=== PATIENT | female | born 1970 | race Caucasian/White ===

== ENCOUNTER 2016-08-25 17:33 | Emergency (ER) | payer MEDICAID ==
[~2016-08-25] VITALS: Ht 177.8 cm; Wt 99.8 kg
[~2016-08-25 17:33] MED LIST: IBUP100T36 PO
[2016-08-25] MEDS ORDERED: HYDROCODONE/APAP 5/325MG 1 EACH TABLET ONE (20:55)
[2016-08-25] MEDS ORDERED: HYDROCODONE/APAP 5/325MG 1 EACH TABLET PO ONE (21:00)
[2016-08-25 21:59] VITALS: BP 140/70
== END 2016-08-25 22:00 | disposition home or self-care (01) ==
LOC: ER 17:35
DX: M54.5 Low back pain (principal); G89.29 Other chronic pain; F17.200 Nicotine dependence, unspecified, uncomplicated; I10 Essential (primary) hypertension; Z88.5 Allergy status to narcotic agent; Z88.0 Allergy status to penicillin; Z88.1 Allergy status to other antibiotic agents
CPT/HCPCS: 72110; 99284; A4606; Z7610

== ENCOUNTER 2016-09-02 08:10 | Emergency (ER) | payer MEDICAID ==
[~2016-09-02] VITALS: Ht 175.3 cm; Wt 115.7 kg
[2016-09-02] MEDS ORDERED: ONDANSETRON HCL/PF 4 MG/2 ML VIAL ONE ×2 (08:29→09:47)
[2016-09-02] MEDS ORDERED: IV SET PRIMARY 1 EA INFUS.SET MC ONE (08:36)
[2016-09-02] MEDS ORDERED: IV NS 0.9% 1,000 ML ONE (08:36)
[2016-09-02 08:50] LABS: BASOPHILS % (AUTO) 0.1 % (0.0-2.0); DIFF TOTAL % 100 %; EOSINOPHILS % (AUTO) 0.1 % (0.0-6.0); HEMATOCRIT 44 % (33-45); HEMOGLOBIN 14.3 g/dL (11.5-14.8); LYMPHOCYTES # (AUTO) 0.9 /CMM (0.8-4.8); LYMPHOCYTES % (AUTO) 9.7 % (20.0-44.0); MEAN CORPUSCULAR HEMOGLOBIN 29 PG (26.0-33.0); MEAN CORPUSCULAR HGB CONC 33 g/dl (31.0-36.0); MEAN CORPUSCULAR VOLUME 89 fL (82-100); MONOCYTES # (AUTO) 0.3 /CMM (0.1-1.30); MONOCYTES % (AUTO) 2.8 % (2.0-12.0); NEUTROPHILS # (AUTO) 8.3 /CMM (1.8-8.9); NEUTROPHILS % (AUTO) 87.3 % (43.0-81.0); PLATELET COUNT (AUTO) 281 /CMM (150-450); RED BLOOD CELL COUNT(AUTO) 4.93 MIL/uL (4.0-5.2); WHITE BLOOD COUNT (AUTO) 9.5 K/uL (4.3-11.0)
[2016-09-02 09:00] LABS: ANION GAP 11 (5-14); CALCIUM, SERUM 8.8 mg/dL (8.5-10.1); CARBON DIOXIDE 27 mmol/L (21-32); CHLORIDE 101 mmol/L (98-107); CREATININE 0.9 mg/dL (0.6-1.3); GFR 67 mL/min (>60); GLUCOSE 143 mg/dL (74-106); POTASSIUM 4.4 mmol/L (3.5-5.1); SODIUM SERUM 135 mmol/L (136-145); UREA NITROGEN, BLOOD 7 mg/dL (7-18)
[2016-09-02] MEDS ORDERED: ONDANSETRON HCL/PF 4 MG/2 ML VIAL IVP ONE ×2 (09:00→10:00)
[2016-09-02] MEDS ORDERED: KETOROLAC TROMETHAMINE INJ 30 MG/ML VIAL IV ONE (09:00)
[2016-09-02] MEDS ORDERED: IV NS 0.9% 1,000 ML BAG IV ONE (09:00)
[2016-09-02 09:05] LABS: ALANINE AMINOTRANSFERASE 30 U/L (12-78); ALBUMIN 3.5 g/dL (3.4-5.0); ASPARTATE AMINOTRANSFERASE 11 U/L (15-37); BILIRUBIN,DIRECT 0.1 mg/dL (0.0-0.2); BILIRUBIN,TOTAL 0.5 mg/dL (0.2-1.0); INDIRECT BILIRUBIN 0.4 mg/dL (0.0-1.1); TOTAL PROTEIN, SERUM 7.6 g/dL (6.4-8.2)
[2016-09-02 09:07] LABS: TROPONIN I < 0.017 ng/mL (0.00-0.056)
[2016-09-02 09:09] LABS: INR 1.1 (0.87-1.13); PROTHROMBIN TIME 11.9 SECS (9.5-12.7)
[2016-09-02] MEDS ORDERED: KETOROLAC TROMETHAMINE 15 MG/ML VIAL ONE (09:12)
[2016-09-02] MEDS ORDERED: MORPHINE SULFATE INJ 2 MG/ML DISP.SYRIN ONE (09:47)
[2016-09-02 09:59] VITALS: BP 138/89
[2016-09-02] MEDS ORDERED: MORPHINE SULFATE INJ 2 MG/ML DISP.SYRIN IV ONE (10:00)
== END 2016-09-02 10:01 | disposition home or self-care (01) ==
LOC: ER 08:12
DX: R07.9 Chest pain, unspecified (principal); I10 Essential (primary) hypertension; Z88.0 Allergy status to penicillin; Z88.6 Allergy status to analgesic agent; Z88.1 Allergy status to other antibiotic agents; F17.200 Nicotine dependence, unspecified, uncomplicated
CPT/HCPCS: 36415; 71010; 80048; 80076; 84484; 84703; 85025; 85730; 93005; 96361; 96374; 96375; 96376; 99285; A4606; J1885; J2270; J2405 ×2; J7030; Z7610

== ENCOUNTER 2017-07-28 17:03 | Inpatient (IN) | payer MEDICAID ==
[~2017-07-28] VITALS: Ht 175.3 cm; Wt 112.3 kg
--- NOTE | 2017-07-28 17:10 | NUR ---
BIB SELF, C/O NAUSEA, VOMITING, ABDOMINAL PAIN, FLU SYMPTOMS, NAD NOTED, VSS, RESP EVEN AND UNLABORED. WAITING FOR MD SPANGLER.
[2017-07-28] MEDS ORDERED: KETOROLAC TROMETHAMINE INJ 30 MG/ML VIAL IV ONE (17:30)
[2017-07-28] MEDS ORDERED: IV NS 0.9% 1,000 ML BAG IV ONE (17:30)
[2017-07-28] MEDS ORDERED: ONDANSETRON HCL/PF 4 MG/2 ML VIAL IVP ONE (17:30)
[2017-07-28] MEDS ORDERED: ONDANSETRON HCL/PF 4 MG/2 ML VIAL ONE ×2 (17:33→19:17)
[2017-07-28] MEDS ORDERED: KETOROLAC TROMETHAMINE INJ 30 MG/ML VIAL ONE (17:33)
[2017-07-28 17:50] LABS: BASOPHILS # (AUTO) 0.2 /CMM (0.0-0.2); BASOPHILS % (AUTO) 1.9 % (0.0-2.0); EOSINOPHILS % (AUTO) 0.5 % (0.0-6.0); HEMATOCRIT 45 % (33-45); HEMOGLOBIN 15.6 g/dL (11.5-14.8); LYMPHOCYTES # (AUTO) 1.3 /CMM (0.8-4.8); LYMPHOCYTES % (AUTO) 15.7 % (20.0-44.0); MEAN CORPUSCULAR HEMOGLOBIN 30 PG (26.0-33.0); MEAN CORPUSCULAR HGB CONC 35 g/dl (31.0-36.0); MEAN CORPUSCULAR VOLUME 88 fL (82-100); MONOCYTES # (AUTO) 0.4 /CMM (0.1-1.30); MONOCYTES % (AUTO) 4.9 % (2.0-12.0); NEUTROPHILS # (AUTO) 6.3 /CMM (1.8-8.9); PLATELET COUNT (AUTO) 219 /CMM (150-450); RDW COEFFICIENT OF VARIATION 12.5 (11.5-15.0); RED BLOOD CELL COUNT(AUTO) 5.14 MIL/uL (4.0-5.2); WHITE BLOOD COUNT (AUTO) 8.2 K/uL (4.3-11.0)
[2017-07-28] MEDS ORDERED: MORPHINE SULFATE INJ 4 MG/ML DISP.SYRIN ONE ×2 (17:56→19:18)
[2017-07-28] MEDS ORDERED: MORPHINE SULFATE INJ 2 MG/ML DISP.SYRIN IV ONE ×2 (18:00→19:00)
[2017-07-28 18:08] LABS: ALBUMIN 3.8 g/dL (3.4-5.0); BILIRUBIN,DIRECT 0.1 mg/dL (0.0-0.2); BILIRUBIN,TOTAL 0.6 mg/dL (0.2-1.0); CALCIUM, SERUM 9.5 mg/dL (8.5-10.1); CREATININE 0.7 mg/dL (0.6-1.3); POTASSIUM 3.6 mmol/L (3.5-5.1); TOTAL PROTEIN, SERUM 8.4 g/dL (6.4-8.2)
[2017-07-28 18:25] LABS: INR 1.03 (0.87-1.13); PROTHROMBIN TIME 10.7 SECS (9.5-12.7)
[2017-07-28] MEDS ORDERED: IOHEXOL-300 100 ML VIAL IV ONE (19:02)
[2017-07-28] MEDS ORDERED: IV NS 0.9% 250 ML IV ONE ×2 (19:02→23:14)
--- NOTE | 2017-07-28 19:27 | NUR ---
URINE SENT TO LAB
--- NOTE | 2017-07-28 19:27 | NUR ---
PT TO CTSCAN
[2017-07-28] MEDS ORDERED: ONDANSETRON HCL/PF 4 MG/2 ML VIAL IV ONE (19:30)
[2017-07-28 19:32] LABS: APPEARANCE,URINE Clear (CLEAR); BILIRUBIN,URINE Negative (NEGATIVE); BLOOD, URINE Trace-intact Ery/uL (NEGATIVE); COLOR,URINE Yellow (YELLOW); KETONES,URINE Negative (NEGATIVE); LEUKOCYTE ESTERASE ,URINE Negative (NEGATIVE); NITRITE, URINE Negative (NEGATIVE); PH,URINE 8.5 (5.0-8.0); PROTEIN,URINE Negative (NEGATIVE); UGLUCOSE Negative (NEGATIVE); UROBILINOGEN,URINE 0.2 EU/dL (0.2)
[2017-07-28 20:01] LABS: BACTERIA,URINE Rare /HPF (None Seen); RBC,URINE 0-2 /HPF (0-2); SQUAMOUS EPITHELIAL CELL,UR Few /HPF (None Seen); URINE AMORPHOUS PHOSPHATES Few /HPF (None Seen); WBC,URINE 0-2 /HPF (0-3)
[2017-07-28] MEDS ORDERED: HYDROMORPHONE 1 MG/1 ML DISP.SYRIN IV ONE (20:30)
[2017-07-28] MEDS ORDERED: HYDROMORPHONE 1 MG/1 ML DISP.SYRIN ONE (20:53)
--- NOTE | 2017-07-28 21:46 | NUR ---
PAGED MENTAL HEALTH COORDINATOR PANEL DR DANICA ARREOLA
[2017-07-28] MEDS ORDERED: IV D5/0.45 NACL 1,000 ML IV PRN (22:27)
[2017-07-28] MEDS ORDERED: Z GUARD REMEDY 2 OZ OINT TP PRN (22:30)
[2017-07-28] MEDS ORDERED: MORPHINE SULFATE INJ 2 MG/ML DISP.SYRIN IV PRN (22:30)
[2017-07-28] MEDS ORDERED: MAGNESIUM HYDROXIDE 30 ML UDC PO PRN (22:30)
[2017-07-28] MEDS ORDERED: MAG HYDROX/AL HYDROX/SIMETH 30 ML UDC PO PRN (22:30)
[2017-07-28] MEDS ORDERED: ACETAMINOPHEN 325 MG TABLET PO PRN (22:30)
[2017-07-28] MEDS ORDERED: HYDROCODONE/APAP 5/325MG 1 EACH TABLET PO PRN (22:30)
[2017-07-28] MEDS ORDERED: ZOLPIDEM TARTRATE 5 MG TABLET PO PRN (22:30)
--- NOTE | 2017-07-28 22:32 | NUR ---
PATIENT 317-2, DX CHEST PAIN ADMITTED BY DR DANICA ARREOLA
--- NOTE | 2017-07-28 22:53 | NUR ---
REPORT GIVEN TO SUSY.
[2017-07-28] MEDS ORDERED: IOHEXOL-350 100 ML VIAL IV ONE (23:14)
[2017-07-28] MEDS ORDERED: CT SWABBABLE VALVE TRANS SET 1 EA INFUS.SET MC ONE (23:14)
[2017-07-29 00:10] VITALS: BP 155/99
--- NOTE | 2017-07-29 00:10 | NUR ---
RN NOTES ADMITTED A 47 YEARS OLD FEMALE PT FROM ER VIA [facility] WITH PRIMARY DIAGNOSIS OF CHEST PAIN. PT ALERT AND ORIENTED X4, VERBALLY RESPONSIVE. VITAL SIGNS STABLE. PT STILL COMPLAINING OF PAIN ON MEDIAL CHEST RADIATING TO LEFT SIDE OF THE BODY TO BACK. PT VERBALIZING FEELS NAUSEATED. SKIN AND BODY ASSESSMENT DONE WITH PICTURES TAKEN AND FILE IN THE CHART. ALL ORDERS NOTED AND CARRIED OUT. PLAN OF CARE DISCUSSED WITH THE PT. FALL PRECAUTION OBSERVED. WILL CONTINUE TO MONITOR PT.
--- NOTE | 2017-07-29 00:10 | NUR ---
ASSUMED ADMISSION CARE OF PT AT THIS TIME. REPORT ALREADY GIVEN BY PRIMARY NURSE TO BE TRANSPORTED TO TELE FLOOR VIA [facility].
[2017-07-29 00:30] VITALS: BP 155/99
[2017-07-29] MEDS ORDERED: ONDANSETRON HCL/PF 4 MG/2 ML VIAL ONE (00:45)
[2017-07-29] MEDS ORDERED: MORPHINE SULFATE INJ 4 MG/ML DISP.SYRIN ONE ×2 (00:49→05:14)
[2017-07-29] MEDS: MORPHINE SULFATE INJ 4 MG/ML DISP.SYRIN IV PRN ×3 (00:57→09:25)
[2017-07-29] MEDS: ONDANSETRON HCL/PF 4 MG/2 ML VIAL IVP PRN ×3 (00:58→09:26)
[2017-07-29 04:00] VITALS: BP 139/85
[2017-07-29] MEDS ORDERED: PANTOPRAZOLE 40 MG TABLET.DR PO SCH (07:30)
[2017-07-29 07:35] LABS: BASOPHILS % (AUTO) 0.5 % (0.0-2.0); EOSINOPHILS # (AUTO) 0.1 /CMM (0.0-0.7); EOSINOPHILS % (AUTO) 0.8 % (0.0-6.0); HEMATOCRIT 44 % (33-45); HEMOGLOBIN 14.8 g/dL (11.5-14.8); LYMPHOCYTES % (AUTO) 24.2 % (20.0-44.0); MEAN CORPUSCULAR HEMOGLOBIN 30 PG (26.0-33.0); MEAN CORPUSCULAR HGB CONC 34 g/dl (31.0-36.0); MEAN CORPUSCULAR VOLUME 89 fL (82-100); MONOCYTES # (AUTO) 0.5 /CMM (0.1-1.30); MONOCYTES % (AUTO) 6.6 % (2.0-12.0); NEUTROPHILS # (AUTO) 5.6 /CMM (1.8-8.9); NEUTROPHILS % (AUTO) 67.9 % (43.0-81.0); PLATELET COUNT (AUTO) 213 /CMM (150-450); RDW COEFFICIENT OF VARIATION 12.6 (11.5-15.0); WHITE BLOOD COUNT (AUTO) 8.2 K/uL (4.3-11.0)
--- NOTE | 2017-07-29 07:35 | NUR ---
RN NOTES PT AWAKE, HOB ELEVATED, ON ROOM AIR WITH GOOD SATURATION. VITAL SIGNS STABLE, AFEBRILE. CURRENT DIET TOLERATED WELL, NO EPISODE OF VOMITING NOTED. TELE MONITOR READS SINUS RHYTHM AT 74. KEPT PAIN AT TOLERABLE LEVEL. ALL NEEDS ATTENDED. WILL CONTINUE TO MONITOR PT.
--- NOTE | 2017-07-29 07:52 | NUR ---
RN OPENING NOTES PT RECEIVED A&0X3 AWAKE AND RESTING IN BED. PT TOLERATING ROOM AIR AND DENIES SOB, NO S/S OF RESP DISTRESS OR DIFFICULTY. PT REPORTING 10/10 PAIN TO UPPER BACK AND AWARE OF WHEN NEXT PAIN MEDS ARE DUE, NO OBVIOUS S/S OF DISTRESS OR DISCOMFORT. PT REPORTING SOME NAUSEA AND REQUESTING PRN- WILL ADMIN. PT WITH IVCX2. IVC AT LAC G#20 INTACT AND OPERATIONAL AND IVC AT L HAND INTACT AND SL. BED IN LOWEST, LOCKED POSITION WITH HANDRAILSX2 AND CALL DEWITT WITHIN REACH. PT BRIEFED ON TODAY'S POC AND IS WITHOUT COMPLAINT AT THIS TIME.
[2017-07-29] MEDS ORDERED: BUPR1FIL3 SL (07:55)
[2017-07-29] MEDS ORDERED: ATEN100T PO (07:55)
[2017-07-29 08:00] VITALS: BP 154/90
[2017-07-29 08:04] LABS: ALBUMIN 3.5 g/dL (3.4-5.0); BILIRUBIN,DIRECT 0.1 mg/dL (0.0-0.2); BILIRUBIN,TOTAL 0.6 mg/dL (0.2-1.0); CALCIUM, SERUM 8.9 mg/dL (8.5-10.1); CREATININE 0.8 mg/dL (0.6-1.3); INR 1.07 (0.87-1.13); MAGNESIUM 1.9 mg/dL (1.8-2.4); PHOSPHORUS 4.8 mg/dL (2.5-4.9); POTASSIUM 3.7 mmol/L (3.5-5.1); PROTHROMBIN TIME 11.1 SECS (9.5-12.7); TOTAL PROTEIN, SERUM 7.6 g/dL (6.4-8.2)
[2017-07-29 08:08] LABS: CREATINE KINASE MB 0.4 ng/mL (0-3.6); THYROID STIMULATING HORMONE 0.64 uIU/mL (0.358-3.74)
[2017-07-29] MEDS ORDERED: SUMATRIPTAN SUCCINATE 6 MG/0.5 ML VIAL SQ ONE (09:30)
[2017-07-29 09:50] LABS: THYROID STIMULATING HORMONE 0.583 uIU/mL (0.358-3.74)
[2017-07-29] MEDS: HYDROMORPHONE 1 MG/1 ML DISP.SYRIN IV PRN ×3 (10:48→19:41)
--- NOTE | 2017-07-29 10:49 | NUR ---
RN NOTES. PT REPORTING UNCONTROLLED PAIN FROM MORPHINE AND SPECIFICALLY REQUESTING DILAUDID, PT REPORTS HAVING IT IN THE PAST AND DENIES PREVIOUS ADVERSE REACTIONS R/T CODEINE ALLERGY CROSS REACTION. APPROVED BY PHARMACY AND MD VILLA. NOW DILAUDID IS AVAILABLE PT REFUSING THE REQUESTING MIGRAINE PRN. WILL CONTINUE TO MONITOR.
[2017-07-29] MEDS: SUMATRIPTAN SUCCINATE 25 MG TABLET PO ONE ×2 (11:00→16:50)
--- NOTE | 2017-07-29 11:46 | NUR ---
WOUND CARE CONSULT; PT REFUSED FULL SKIN ASSESSMENT BUT ALLOWED ASSESSMENT OF ARMS AND LOWER LEGS. MULTIPLE SCARS NOTED WITH OPEN BLISTER AREA TO RT POSTERIOR HEEL, PRESENT ON ADMISSION. PT STATES THIS WAS FROM HER SHOE. PT INDEPENDENT WITH BED MOBILITY AND CONTINENT. CURRENT ANALIA SCORE IS 20. RECOMMENDATIONS MADE FOR SKIN PROTECTION AND DISCUSSED WITH NURSING STAFF. WILL SEE PRN. SCHWAB IN AGREEMENT WITH PLAN OF CARE. Addendum: 07/29/17 at 1148 by MISA LANDRY WNDNU Amended: Links added.
[2017-07-29 13:20] LABS: RETICULOCYTE COUNT 1.3 % (0.6-2.5)
[2017-07-29 16:00] VITALS: BP 149/80
--- NOTE | 2017-07-29 16:51 | NUR ---
RN NOTES. PER MD VILLA IMITREX 25MG ADMIN.
[2017-07-29] MEDS ORDERED: HYDR-552 PO (17:03)
[2017-07-29] MEDS ORDERED: ZOLP5TAB2 PO (17:04)
--- NOTE | 2017-07-29 20:00 | NUR ---
RN CLOSING NOTES PT A&0X3. PT TOLERATING ROOM AIR AND DENIES SOB, NO S/S OF RESP DISTRESS OR DIFFICULTY. PT REPORTING ADEQUATE PAIN MANAGEMENT AT THIS TIME. PT WITHOUT NAUSEA AT THIS TIME. PT WITH IVC AT LAC G#20 INTACT AND OPERATIONAL. BED IN LOWEST, LOCKED POSITION WITH HANDRAILSX2 AND CALL DEWITT WITHIN REACH. PT IS CLEARED FOR D/C PER MD VILLA AND EXIT CARE STARTED. PT WITHOUT CONCERN OR COMPLAINT AT THIS TIME, WILL ENDORSE TO NIGHT NURSE.
--- NOTE | 2017-07-29 20:49 | NUR ---
MS RN NOTES PT PREPARED FOR D/C PER . NO SOB. RESPIRATION EVEN AND UNLABORED. V/S STABLE. PT DENIES PAIN AT THIS TIME. REMOVED IV. PICTURES TAKEN. AHSAN WAITING FOR THE PT. PT WITH ALL BELONGINGS AND DOCUMENT SIGNED. PT IS VERBALIZING UNDERSTANDING ABOUT D/C INSTRUCTIONS. PT STABLE UPON DISCHARGE.
[2017-07-30] MEDS ORDERED: REGADENOSON 0.4 MG/5 ML DISP.SYRIN IVP ONE (08:00)
== END 2017-07-29 20:30 | disposition home or self-care (01) | DRG 54 ==
LOC: ER 17:04 → TELE 22:55 → MED 07-29 09:10
PROVIDERS: ADMIT Internal Medicine; ATTEND Internal Medicine
DX: G43.909 Migraine, unspecified, not intractable, without status migrainosus (principal); I10 Essential (primary) hypertension; R07.89 Other chest pain; K21.9 Gastro-esophageal reflux disease without esophagitis; Z98.1 Arthrodesis status; Z98.84 Bariatric surgery status; B34.9 Viral infection, unspecified
CPT/HCPCS: 36415; 70450-TC; 71045-TC; 80048-TC; 80053-TC; 80061-TC; 80076-TC; 81000-TC; 82150-TC; 82306; 82553-TC; 82746; 83540-TC; 83690-TC; 83735-TC; 84100-TC; 84439-TC; 84443-TC; 84484-TC; 85025-TC; 85045-TC; 85378-TC; 85730-TC; 87040-TC; 87081-TC; 93307-TC; 93970-TC; J1170; J1885; J2270; J2405; J3030; J3490; J7030; J7050; Q9967; Z7610

== ENCOUNTER 2018-01-15 09:15 | Emergency (ER) | payer MEDICAID ==
[~2018-01-15] VITALS: Ht 177.8 cm; Wt 102.1 kg
[~2018-01-15 09:15] MED LIST changes: +ATEN100T PO; +BUPR1FIL3 SL; +HYDR-552 PO; -IBUP100T36 PO; +ZOLP5TAB2 PO
--- NOTE | 2018-01-15 09:15 | NUR ---
PATIENT IS NOT IN WAITING ROOM. UNABLE TO TRIAGE PAIENT. WILL TRY AGAIN IN 10 MIN.
--- NOTE | 2018-01-15 09:25 | NUR ---
PATIENT IS STILL NOT IN WAITING ROOM. UNABLE TO TRIAGE PAIENT. WILL TRY AGAIN IN 10 MIN.
--- NOTE | 2018-01-15 09:35 | NUR ---
NAUSEA, VOMITING, ABDOMINAL PAIN SINCE MIDNIGHT. NAD NOTED. PT AAO X4, AMB WITH STEADY GAIT. RR EVEN AND UNLABORED. VSS. DR GARCÍA AT BEDSIDE FOR EVAL.
[2018-01-15] MEDS ORDERED: ONDANSETRON HCL/PF 4 MG/2 ML VIAL ONE (09:37)
--- NOTE | 2018-01-15 09:46 | NUR ---
MEDS GIVEN ORDERED.
--- NOTE | 2018-01-15 09:49 | NUR ---
ULTRASOUND AT BEDSIDE
[2018-01-15 09:51] LABS: BASOPHILS # (AUTO) 0.1 /CMM (0.0-0.2); BASOPHILS % (AUTO) 1.6 % (0.0-2.0); EOSINOPHILS % (AUTO) 2.4 % (0.0-6.0); HEMATOCRIT 42 % (33-45); HEMOGLOBIN 14.3 g/dL (11.5-14.8); LYMPHOCYTES # (AUTO) 1.7 /CMM (0.8-4.8); LYMPHOCYTES % (AUTO) 23.5 % (20.0-44.0); MEAN CORPUSCULAR HEMOGLOBIN 30 PG (26.0-33.0); MEAN CORPUSCULAR HGB CONC 34 g/dl (31.0-36.0); MEAN CORPUSCULAR VOLUME 88 fL (82-100); MONOCYTES # (AUTO) 0.5 /CMM (0.1-1.30); MONOCYTES % (AUTO) 6.4 % (2.0-12.0); NEUTROPHILS # (AUTO) 4.9 /CMM (1.8-8.9); NEUTROPHILS % (AUTO) 66.1 % (43.0-81.0); PLATELET COUNT (AUTO) 273 /CMM (150-450); RDW COEFFICIENT OF VARIATION 12.7 (11.5-15.0); WHITE BLOOD COUNT (AUTO) 7.4 K/uL (4.3-11.0)
[2018-01-15 10:00] LABS: CALCIUM, SERUM 9.1 mg/dL (8.5-10.1); CREATININE 0.8 mg/dL (0.6-1.3)
[2018-01-15] MEDS ORDERED: ONDANSETRON HCL/PF 4 MG/2 ML VIAL IVP ONE (10:00)
[2018-01-15] MEDS ORDERED: IV NS 0.9% 500 ML BAG IV ONE (10:00)
[2018-01-15 10:05] LABS: ALBUMIN 3.9 g/dL (3.4-5.0); BILIRUBIN,DIRECT 0.2 mg/dL (0.0-0.2); TOTAL PROTEIN, SERUM 8.1 g/dL (6.4-8.2)
[2018-01-15] MEDS ORDERED: FAMOTIDINE (20 MG) 20 MG TABLET PO ONE (10:30)
[2018-01-15] MEDS ORDERED: FAMOTIDINE (20 MG) 20 MG TABLET ONE (10:31)
[2018-01-15 10:35] VITALS: BP 160/84
== END 2018-01-15 10:36 | disposition home or self-care (01) ==
LOC: ER 09:20
DX: R10.13 Epigastric pain (principal); I10 Essential (primary) hypertension; F17.200 Nicotine dependence, unspecified, uncomplicated; Z98.890 Other specified postprocedural states; Z88.0 Allergy status to penicillin; Z88.1 Allergy status to other antibiotic agents; Z88.6 Allergy status to analgesic agent
CPT/HCPCS: 36415; 76705; 80048; 80076; 83690; 85025; 96374; 99285; A4606; J2405; J7040; Z7610

== ENCOUNTER 2020-01-11 18:02 | Emergency (ER) | payer MEDICAID ==
[~2020-01-11] VITALS: Ht 172.7 cm; Wt 122.5 kg
[~2020-01-11 18:02] MED LIST changes: +HYDR-4384 PO; -HYDR-552 PO
[2020-01-11] MEDS ORDERED: PANTOPRAZOLE 40 MG VIAL ONE (19:16)
[2020-01-11] MEDS ORDERED: MAG HYDROX/AL HYDROX/SIMETH 30 ML UDC ONE (19:16)
[2020-01-11] MEDS ORDERED: LIDOCAINE VISCOUS 2% UD 15 ML UDC ONE (19:16)
[2020-01-11] MEDS ORDERED: MORPHINE SULFATE INJ 4 MG/ML DISP.SYRIN ONE (19:17)
[2020-01-11] MEDS ORDERED: ONDANSETRON HCL/PF 4 MG/2 ML VIAL ONE (19:17)
[2020-01-11 19:24] LABS: BASOPHILS % (AUTO) 0.5 % (0.0-2.0); EOSINOPHILS % (AUTO) 1.1 % (0.0-6.0); HEMATOCRIT 43 % (33-45); HEMOGLOBIN 14.3 g/dL (11.5-14.8); LYMPHOCYTES # (AUTO) 1.4 /CMM (0.8-4.8); LYMPHOCYTES % (AUTO) 20.4 % (20.0-44.0); MEAN CORPUSCULAR HGB CONC 33 g/dl (31.0-36.0); MEAN CORPUSCULAR VOLUME 89 fL (82-100); MONOCYTES # (AUTO) 0.6 /CMM (0.1-1.30); NEUTROPHILS # (AUTO) 4.9 /CMM (1.8-8.9); PLATELET COUNT (AUTO) 238 /CMM (150-450); RED BLOOD CELL COUNT(AUTO) 4.86 MIL/uL (4.0-5.2); WHITE BLOOD COUNT (AUTO) 6.9 K/uL (4.3-11.0)
[2020-01-11 19:30] LABS: CALCIUM, SERUM 9.1 mg/dL (8.5-10.1); CREATININE 0.9 mg/dL (0.6-1.3); POTASSIUM 4.1 mmol/L (3.5-5.1)
[2020-01-11] MEDS ORDERED: MORPHINE SULFATE INJ 10 MG/ML DISP.SYRIN IV ONE (19:30)
[2020-01-11] MEDS ORDERED: LIDOCAINE VISCOUS 2% UD 15 ML UDC MM ONE (19:30)
[2020-01-11] MEDS ORDERED: ONDANSETRON HCL/PF 4 MG/2 ML VIAL IV ONE (19:30)
[2020-01-11] MEDS ORDERED: MAG HYDROX/AL HYDROX/SIMETH 30 ML UDC PO ONE (19:30)
[2020-01-11] MEDS ORDERED: PANTOPRAZOLE 40 MG VIAL IV ONE (19:30)
[2020-01-11] MEDS ORDERED: IV NS 0.9% 1,000 ML BAG IV ONE (19:30)
--- NOTE | 2020-01-11 19:30 | NUR ---
ENDORSED TO MARVA ADAMSON FOR BEATRICE.
--- NOTE | 2020-01-11 19:30 | NUR ---
PATIENT CAME IN TO THE ER C/O CHEST DISCOMFORT, SOB X 3 DAYS, R HAND PAIN W/ NOTED WOUND X 3 DAYS. ON ROOM AIR, BREATHING EVENLY AND UNLABORED. CONNECTED TO THE MONITOR AND PULSE OX. KEPT COMFORTABLE, WILL CONTINUE TO MONITOR ACCORDINGLY.
[2020-01-11 19:52] LABS: B-TYPE NATRIURETIC PEPTIDE 29 PG/ML (0-125); BILIRUBIN,DIRECT 0.1 mg/dL (0.0-0.2); BILIRUBIN,TOTAL 0.4 mg/dL (0.2-1.0); TOTAL PROTEIN, SERUM 8.2 g/dL (6.4-8.2)
--- NOTE | 2020-01-11 20:46 | NUR ---
PT'S FATHER, ZHANNA
[2020-01-11 20:51] LABS: APPEARANCE,URINE Clear (CLEAR); BILIRUBIN,URINE Negative (NEGATIVE); BLOOD, URINE Negative Ery/uL (NEGATIVE); COLOR,URINE Yellow (YELLOW); KETONES,URINE Negative (NEGATIVE); LEUKOCYTE ESTERASE ,URINE Negative (NEGATIVE); NITRITE, URINE Negative (NEGATIVE); PROTEIN,URINE Negative (NEGATIVE); UGLUCOSE Negative (NEGATIVE); UROBILINOGEN,URINE 0.2 EU/dL (0.2)
[2020-01-11] MEDS ORDERED: METOCLOPRAMIDE HCL 10 MG/2 ML VIAL IV ONE (21:30)
[2020-01-11] MEDS ORDERED: HYDROMORPHONE INJ 2 MG/ML DISP.SYRIN IV ONE (21:30)
[2020-01-11] MEDS ORDERED: CT SWABBABLE VALVE TRANS SET 1 EA INFUS.SET MC ONE (21:40)
[2020-01-11] MEDS ORDERED: IOHEXOL-300 100 ML VIAL IV ONE (21:40)
[2020-01-11] MEDS ORDERED: IV NS 0.9% 250 ML IV ONE (21:40)
[2020-01-11] MEDS ORDERED: METOCLOPRAMIDE HCL 10 MG/2 ML VIAL ONE (21:57)
[2020-01-11] MEDS ORDERED: HYDROMORPHONE 1 MG/1 ML DISP.SYRIN ONE (21:58)
--- NOTE | 2020-01-11 22:09 | NUR ---
BACK FROM CT
[2020-01-11 23:00] VITALS: BP 150/100
--- NOTE | 2020-01-11 23:19 | NUR ---
Patient discharged to home in stable condition. Written and verbal after care instructions given. Patient verbalizes understanding of instruction.IV removed. Catheter intact and site benign. Pressure and 4x4 applied to site. No bleeding noted.
== END 2020-01-11 23:48 | disposition home or self-care (01) ==
LOC: ER 18:06
DX: R10.13 Epigastric pain (principal); R11.0 Nausea; K59.00 Constipation, unspecified; E66.01 Morbid (severe) obesity due to excess calories; Z68.41 Body mass index [BMI] 40.0-44.9, adult; Z98.84 Bariatric surgery status; I10 Essential (primary) hypertension; Z79.82 Long term (current) use of aspirin; L98.499 Non-pressure chronic ulcer of skin of other sites with unspecified severity; R06.02 Shortness of breath; Z20.828 Contact with and (suspected) exposure to other viral communicable diseases; Z98.1 Arthrodesis status
CPT/HCPCS: 36415; 71045; 74176; 80048; 80076; 81001; 83690; 83880; 84484; 85025; 93005 ×2; 96361; 96374; 96375; 99285; C9113; C9803; J1170; J2270; J2405; J2765; J7030; U0003; 81000-TC; J7050; Q9967

== ENCOUNTER 2020-03-18 21:08 | Emergency (ER) | payer MEDICAID ==
[~2020-03-18] VITALS: Ht 177.8 cm; Wt 117.9 kg
--- NOTE | 2020-03-18 23:33 | NUR ---
PATIENT CAME TO ER BED 8 C/O GENERALIZED PAIN "I HAVE PAIN EVERYWHERE" SINCE 3x DAYS AGO. PATIENT HAS WOUNDS THAT ARE PINK AND NOT BLEEDING, NON-PURULENT ON HER RIGHT HAND AND RIGHT THIGH. PATIENT IS AAOX4. NO SOB. BREATHING EVENLY AND UNLABORED ON ROOM AIR. CONNECTED TO THE MONITOR.
[2020-03-18 23:57] LABS: BASOPHILS # (AUTO) 0.1 /CMM (0.0-0.2); BASOPHILS % (AUTO) 0.7 % (0.0-2.0); EOSINOPHILS % (AUTO) 0.4 % (0.0-6.0); HEMATOCRIT 42 % (33-45); HEMOGLOBIN 13.7 g/dL (11.5-14.8); LYMPHOCYTES # (AUTO) 1.6 /CMM (0.8-4.8); LYMPHOCYTES % (AUTO) 18.6 % (20.0-44.0); MEAN CORPUSCULAR HGB CONC 32 g/dl (31.0-36.0); MEAN CORPUSCULAR VOLUME 90 fL (82-100); MONOCYTES # (AUTO) 0.5 /CMM (0.1-1.30); MONOCYTES % (AUTO) 5.6 % (2.0-12.0); NEUTROPHILS # (AUTO) 6.4 /CMM (1.8-8.9); NEUTROPHILS % (AUTO) 74.7 % (43.0-81.0); PLATELET COUNT (AUTO) 230 /CMM (150-450); RED BLOOD CELL COUNT(AUTO) 4.69 MIL/uL (4.0-5.2); WHITE BLOOD COUNT (AUTO) 8.6 K/uL (4.3-11.0)
[2020-03-19 00:18] LABS: ALANINE AMINOTRANSFERASE 38 U/L (12-78); ALBUMIN 3.7 g/dL (3.4-5.0); ALKALINE PHOSPHATASE 82 U/L (46-116); ASPARTATE AMINOTRANSFERASE 22 U/L (15-37); BILIRUBIN,DIRECT 0.1 mg/dL (0.0-0.2); BILIRUBIN,TOTAL 0.3 mg/dL (0.2-1.0); CALCIUM, SERUM 8.9 mg/dL (8.5-10.1); CARBON DIOXIDE 29 mmol/L (21-32); CHLORIDE 103 mmol/L (98-107); CREATININE 0.9 mg/dL (0.6-1.3); GLUCOSE 114 mg/dL (74-106); SODIUM SERUM 141 mmol/L (136-145); TOTAL PROTEIN, SERUM 7.9 g/dL (6.4-8.2); UREA NITROGEN, BLOOD 10 mg/dL (7-18)
[2020-03-19] MEDS ORDERED: HYDROMORPHONE HCL 2 MG TABLET PO PRN (00:30)
[2020-03-19 00:46] LABS: APPEARANCE,URINE CLEAR (CLEAR); BILIRUBIN,URINE NEGATIVE (NEGATIVE); BLOOD, URINE NEGATIVE Ery/uL (NEGATIVE); COLOR,URINE YELLOW (YELLOW); KETONES,URINE NEGATIVE (NEGATIVE); LEUKOCYTE ESTERASE ,URINE NEGATIVE (NEGATIVE); NITRITE, URINE NEGATIVE (NEGATIVE); PROTEIN,URINE NEGATIVE (NEGATIVE); UGLUCOSE NEGATIVE (NEGATIVE); UROBILINOGEN,URINE 0.2 EU/dL (0.2)
[2020-03-19 00:57] LABS: B-TYPE NATRIURETIC PEPTIDE 76 PG/ML (0-125)
[2020-03-19] MEDS ORDERED: HYDROMORPHONE HCL 2 MG TABLET ONE (01:11)
[2020-03-19] MEDS ORDERED: KETOROLAC TROMETHAMINE INJ 30 MG/ML VIAL ONE (02:29)
[2020-03-19] MEDS ORDERED: ONDANSETRON 4 MG TAB.RAPDIS ONE (02:29)
[2020-03-19] MEDS ORDERED: KETOROLAC TROMETHAMINE INJ 30 MG/ML VIAL IM ONE (02:30)
[2020-03-19] MEDS ORDERED: ONDANSETRON 4 MG TAB.RAPDIS SL ONE (02:30)
--- NOTE | 2020-03-19 02:38 | NUR ---
Patient discharged to home in stable condition. Written and verbal after care instructions given. Patient verbalizes understanding of instruction.
--- NOTE | 2020-03-19 02:38 | NUR ---
IV removed. Catheter intact and site benign. Pressure and 4x4 applied to site. No bleeding noted.
[2020-03-19 03:28] VITALS: BP 116/73
== END 2020-03-19 02:38 | disposition home or self-care (01) ==
LOC: ER 21:13
DX: M06.9 Rheumatoid arthritis, unspecified (principal); G89.4 Chronic pain syndrome; Z88.0 Allergy status to penicillin; Z88.8 Allergy status to other drugs, medicaments and biological substances; I10 Essential (primary) hypertension; Z20.828 Contact with and (suspected) exposure to other viral communicable diseases; F17.200 Nicotine dependence, unspecified, uncomplicated; L53.9 Erythematous condition, unspecified
CPT/HCPCS: 36415; 71045; 80048; 80076; 81001; 83880; 84484; 85025; 85730; 87040 ×2; 87086; 87426; 93005; 96372; 99285; 99406; C9803; J1885; Q0162; 81000-TC

== ENCOUNTER 2021-11-29 14:18 | Emergency (ER) | payer MEDICAID ==
[~2021-11-29] VITALS: Ht 175.3 cm; Wt 122.5 kg
--- NOTE | 2021-11-29 14:30 | NUR ---
BIBS this 51/f with c/o rectal bleeding and abd pain since last night 10/ ps. Placed comfortably in bed. Vitals checked.
[2021-11-29] MEDS ORDERED: HYDROMORPHONE 1 MG/1 ML DISP.SYRIN ONE ×2 (14:45→16:37)
[2021-11-29] MEDS ORDERED: ONDANSETRON HCL/PF 4 MG/2 ML VIAL ONE (14:45)
[2021-11-29] MEDS ORDERED: IV NS 0.9% 1,000 ML BAG IV ONE (15:00)
[2021-11-29] MEDS ORDERED: ONDANSETRON HCL/PF 4 MG/2 ML VIAL IVP ONE (15:00)
[2021-11-29] MEDS ORDERED: HYDROMORPHONE INJ 2 MG/ML DISP.SYRIN IV ONE ×2 (15:00→16:30)
--- NOTE | 2021-11-29 15:00 | NUR ---
IV CANNULA G20 INSERTED ON RIGHT FA. BLOOD DRAWN AND SENT TO LAB
--- NOTE | 2021-11-29 15:05 | NUR ---
WASTED 0.5MG DILAUDID IV. WITNESSED BY BRICE REDMAN.
--- NOTE | 2021-11-29 15:10 | NUR ---
BROUGHT TO CT DEPT VIA STRETCHER
[2021-11-29 15:42] LABS: BASOPHILS % (AUTO) 0.1 % (0.0-2.0); EOSINOPHILS % (AUTO) 0.3 % (0.0-6.0); HEMATOCRIT 41 % (33-45); HEMOGLOBIN 13.3 g/dL (11.5-14.8); LYMPHOCYTES # (AUTO) 0.9 K/uL (0.8-4.8); LYMPHOCYTES % (AUTO) 9.3 % (20.0-44.0); MEAN CORPUSCULAR HGB CONC 33 g/dl (31.0-36.0); MEAN CORPUSCULAR VOLUME 83 fL (82-100); MONOCYTES # (AUTO) 0.3 K/uL (0.1-1.30); MONOCYTES % (AUTO) 3.7 % (2.0-12.0); NEUTROPHILS # (AUTO) 7.9 K/uL (1.8-8.9); NEUTROPHILS % (AUTO) 86.6 % (43.0-81.0); PLATELET COUNT (AUTO) 284 K/uL (150-450); RED BLOOD CELL COUNT(AUTO) 4.91 MIL/uL (4.0-5.2); WHITE BLOOD COUNT (AUTO) 9.1 K/uL (4.3-11.0)
[2021-11-29 15:57] LABS: ALBUMIN 3.6 g/dL (3.4-5.0); BILIRUBIN,DIRECT 0.1 mg/dL (0.0-0.2); BILIRUBIN,TOTAL 0.7 mg/dL (0.2-1.0); CALCIUM, SERUM 9.2 mg/dL (8.5-10.1); CREATININE 0.8 mg/dL (0.6-1.3); POTASSIUM 3.2 mmol/L (3.5-5.1); TOTAL PROTEIN, SERUM 8.5 g/dL (6.4-8.2)
[2021-11-29] MEDS ORDERED: FLAGYL/NS RTU 500 MG/100 ML PIGGYBACK IV ONE (16:30)
[2021-11-29] MEDS ORDERED: POTASSIUM CHLORIDE 20 MEQ TAB.PRT.SR PO ONE ×2 (16:30→16:38)
[2021-11-29] MEDS ORDERED: CIPROFLOXACIN HCL 250 MG TABLET PO ONE (16:30)
[2021-11-29] MEDS ORDERED: METRONIDAZOLE 500MG/ NS 100ML 100 ML IV ONE (16:36)
[2021-11-29] MEDS ORDERED: CIPROFLOXACIN HCL 500 MG TABLET ONE (16:37)
[2021-11-29] MEDS ORDERED: HYDR-3972 PO (16:50)
[2021-11-29] MEDS ORDERED: CIPR-262 PO (16:50)
[2021-11-29] MEDS ORDERED: METR500T PO (16:50)
--- NOTE | 2021-11-29 17:10 | NUR ---
SPOKE TO PHARMACIST DELANO ABOUT THE DISCRIPANCY WITH REGARDS TO THE 1ST ORDER OF DILAUDID 0.5MG IV WHICH WAS GIVEN 1509H, WASTED 0.5MG OF DILAUDID WITNESSED BY BRICE REDMAN.
--- NOTE | 2021-11-29 17:22 | NUR ---
iv cannula removed
--- NOTE | 2021-11-29 17:29 | NUR ---
Patient discharged to home in stable condition. Written and verbal after care instructions given. Patient verbalizes understanding of instruction.
[2021-11-29 17:30] VITALS: BP 145/79
== END 2021-11-29 17:30 | disposition home or self-care (01) ==
LOC: ER 14:24
DX: K62.5 Hemorrhage of anus and rectum (principal); G89.4 Chronic pain syndrome; K52.9 Noninfective gastroenteritis and colitis, unspecified; I10 Essential (primary) hypertension; M06.9 Rheumatoid arthritis, unspecified; Z98.890 Other specified postprocedural states; Z88.5 Allergy status to narcotic agent; Z88.0 Allergy status to penicillin; Z88.1 Allergy status to other antibiotic agents; Z79.899 Other long term (current) drug therapy
CPT/HCPCS: 36415; 71045; 74176; 80048; 80076; 83690; 85025; 85730; 96365; 96375; 96376; 99285; J1170 ×2; J2405; J7030

== ENCOUNTER 2021-12-02 12:42 | Inpatient (IN) | payer MEDICAID ==
[~2021-12-02] VITALS: Ht 177.8 cm; Wt 121.6 kg
[~2021-12-02 12:42] MED LIST changes: +CIPR-262 PO; +HYDR-3972 PO; +METR500T PO
[2021-12-02] MEDS ORDERED: IV NS 0.9% 1,000 ML BAG IV ONE (13:00)
[2021-12-02] MEDS ORDERED: ONDANSETRON HCL/PF 4 MG/2 ML VIAL IVP ONE (13:00)
--- NOTE | 2021-12-02 13:08 | NUR ---
PER PT SHE IS OKAY TAKING MORPHINE. AWARE.
[2021-12-02] MEDS ORDERED: ONDANSETRON HCL/PF 4 MG/2 ML VIAL ONE ×2 (13:16→16:56)
[2021-12-02] MEDS ORDERED: MORPHINE SULFATE INJ 2 MG/ML DISP.SYRIN ONE ×2 (13:16→16:56)
[2021-12-02] MEDS ORDERED: MORPHINE SULFATE INJ 2 MG/ML DISP.SYRIN IV ONE ×2 (13:30→17:00)
[2021-12-02 13:35] LABS: BILIRUBIN,URINE NEGATIVE (NEGATIVE); COLOR,URINE YELLOW (YELLOW); LEUKOCYTE ESTERASE ,URINE NEGATIVE (NEGATIVE); NITRITE, URINE NEGATIVE (NEGATIVE); PROTEIN,URINE NEGATIVE (NEGATIVE); UGLUCOSE NEGATIVE (NEGATIVE); UROBILINOGEN,URINE 0.2 EU/dL (0.2)
[2021-12-02 13:40] LABS: WBC,URINE NONE SEEN /HPF (0-3)
[2021-12-02 13:41] LABS: BACTERIA,URINE None seen /HPF (None Seen); SQUAMOUS EPITHELIAL CELL,UR 0-2 /HPF (None Seen)
--- NOTE | 2021-12-02 13:42 | NUR ---
PT IS WHEELED TO CT SCAN VIA [facility].
[2021-12-02 14:09] LABS: BASOPHILS % (AUTO) 0.4 % (0.0-2.0); EOSINOPHILS % (AUTO) 0.8 % (0.0-6.0); HEMATOCRIT 39 % (33-45); HEMOGLOBIN 12.6 g/dL (11.5-14.8); LYMPHOCYTES # (AUTO) 1.1 K/uL (0.8-4.8); LYMPHOCYTES % (AUTO) 14.8 % (20.0-44.0); MEAN CORPUSCULAR HGB CONC 33 g/dl (31.0-36.0); MEAN CORPUSCULAR VOLUME 83 fL (82-100); MONOCYTES # (AUTO) 0.5 K/uL (0.1-1.30); MONOCYTES % (AUTO) 6.4 % (2.0-12.0); NEUTROPHILS # (AUTO) 5.8 K/uL (1.8-8.9); NEUTROPHILS % (AUTO) 77.6 % (43.0-81.0); PLATELET COUNT (AUTO) 253 K/uL (150-450); WHITE BLOOD COUNT (AUTO) 7.4 K/uL (4.3-11.0)
[2021-12-02 15:20] LABS: ALBUMIN 3.6 g/dL (3.4-5.0); BILIRUBIN,DIRECT 0.1 mg/dL (0.0-0.2); BILIRUBIN,TOTAL 0.4 mg/dL (0.2-1.0); CREATININE 0.9 mg/dL (0.6-1.3); POTASSIUM 3.5 mmol/L (3.5-5.1); TOTAL PROTEIN, SERUM 7.8 g/dL (6.4-8.2)
[2021-12-02] MEDS ORDERED: LEVOFLOXACIN 500 MG /D5W 100ML 100 ML IV ONE (15:49)
[2021-12-02] MEDS ORDERED: METRONIDAZOLE 500MG/ NS 100ML 100 ML IV ONE (15:49)
[2021-12-02] MEDS ORDERED: LEVOFLOXACIN 500 MG /D5W 100ML 500 MG/100 ML PIGGYBACK IV ONE (16:00)
[2021-12-02] MEDS ORDERED: FLAGYL/NS RTU 500 MG/100 ML PIGGYBACK IV ONE (16:00)
[2021-12-02] MEDS ORDERED: NEBI5TAB8 PO (16:01)
[2021-12-02] MEDS ORDERED: DEXT30TA10 PO (16:01)
--- NOTE | 2021-12-02 16:13 | NUR ---
COVID SWAB SENT TO LAB.
[2021-12-02] MEDS ORDERED: Z GUARD REMEDY 4 OZ OINT TP PRN (17:00)
[2021-12-02] MEDS ORDERED: MAG HYDROX/AL HYDROX/SIMETH 30 ML UDC PO PRN (17:00)
[2021-12-02] MEDS ORDERED: ONDANSETRON HCL/PF - ER 4 MG/2 ML VIAL IM ONE (17:00)
[2021-12-02] MEDS ORDERED: MORPHINE SULFATE INJ 2 MG/ML DISP.SYRIN IV PRN (17:00)
[2021-12-02] MEDS ORDERED: ACETAMINOPHEN 325 MG TABLET PO PRN (17:00)
[2021-12-02] MEDS ORDERED: MAGNESIUM HYDROXIDE 30 ML UDC PO PRN (17:00)
--- NOTE | 2021-12-02 17:48 | NUR ---
CALLED NURSING SUP REGARDING MIDLINE FOR PT
--- NOTE | 2021-12-02 19:11 | NUR ---
PT TRANSFERRED TO 3 W PER [facility] PROTOCOL.
[2021-12-02 20:00] VITALS: BP 120/78
--- NOTE | 2021-12-02 20:00 | NUR ---
MS/RN ADMITTING NOTE RECEIVED REPORT FROM JUAN DIEGO FORBES. PATIENT ARRIVED TO UNIT AT APPROX. 1900 VIA GURNEY AND ACCOMPANIED TO ROOM 320-1. PATIENT IS BEING ADMITTED FOR DX OF COLITIS. PATIENT IS ALERT AND ORIENTED X 4. ABLE TO MAKE NEEDS KNOWN. ENDORSES PAIN TO ABDOMEN 04/27 AT THIS TIME - WILL REVIEW MD ORDERS. IV ACCESS TO RIGHT UPPER ARM MIDLINE #18G INTACT, PATENT AND SALINE LOCKED. ORDERS IN PLACE FOR IV FLUIDS AND IV ABX. PATIENT REFUSING SKIN CHECK ON ADMISSION. NOTED VISIBLE RASH TO CHEST ON ADMISSION. PATIENT REFUSED PICTURE TAKEN. PATIENT ORIENTED TO ROOM, CALL LIGHT AND UNIT. CALL LIGHT WITHIN REACH. ASPIRATION, FALL AND SAFETY PRECAUTIONS MAINTAINED. WILL CONTINUE TO MONITOR.
[2021-12-02] MEDS: HYDROMORPHONE 1 MG/1 ML DISP.SYRIN IV PRN (20:04)
[2021-12-02] MEDS: IV NS 0.9% 1,000 ML IV PRN (20:36)
[2021-12-02] MEDS: METRONIDAZOLE 500MG/ NS 100ML 500 MG in PREMIX 1 EA IV SCH (21:18)
[2021-12-02] MEDS: ONDANSETRON HCL/PF 4 MG/2 ML VIAL IVP PRN (21:26)
[2021-12-02 22:28] VITALS: BP 120/78
--- NOTE | 2021-12-02 23:09 | NUR ---
MS/RN NOTE PATIENT WITH C/O ITCHINESS TO CHEST WITH SOME REDNESS NOTED. REQUESTING BENADRYL. NEW ORDER FROM [employer] INTERN LENA FOR BENADRYL 25MG PO Q6HRS PRN. ORDER INPUTTED AND CARRIED OUT.
[2021-12-02] MEDS: diphenhydrAMINE HCL 25 MG CAPSULE PO PRN (23:22)
[2021-12-03] MEDS: HYDROMORPHONE 1 MG/1 ML DISP.SYRIN IV PRN ×3 (00:07→09:01)
[2021-12-03] MEDS: METRONIDAZOLE 500MG/ NS 100ML 500 MG in PREMIX 1 EA IV SCH ×4 (04:07→20:12)
--- NOTE | 2021-12-03 04:11 | NUR ---
MS/RN NOTE PATIENT CURRENTLY REFUSING IV ABX FLAGYL @ 0400. STATES SHE HAD A BAD REACTION TO IT AND WOULD LIKE TO SPEAK TO THE DOCTORS IN AM FIRST. DISCUSSED RISKS OF DELAYING ANTIBIOTIC DOSE WITH PATIENT CONTINUING TO REFUSE. MD OFFICE ASST NOTIFIED WITH NO NEW ORDERS AT THIS TIME. PATIENT IS ALSO ON IV ABX LEVAQUIN.
[2021-12-03] MEDS: diphenhydrAMINE HCL 25 MG CAPSULE PO PRN (05:28)
--- NOTE | 2021-12-03 06:40 | NUR ---
MS/RN CLOSING NOTE PATIENT CURRENTLY SLEEPING IN BED. ALERT AND ORIENTED X 4. ABLE TO MAKE NEEDS KNOWN. DENIES PAIN AT THIS TIME. CONTINUES ON ROOM AIR WITH NO S/SX OF RESPIRATORY DISTRESS NOTED. IV ACCESS TO RIGHT UPPER ARM MIDLINE INTACT AND PATENT. CONTINUES ON IVF NS @ 75ML/HR. CONTINUES ON IV ABX. CONTINUES ON SOFT DIET WITH NO S/SX OF NAUSEA AT THIS TIME. CALL LIGHT WITHIN REACH. ASPIRATION, FALL AND SAFETY PRECAUTIONS MAINTAINED. WILL ENDORSE PLAN OF CARE TO ONCOMING RN.
[2021-12-03 07:11] LABS: CALCIUM, SERUM 8.8 mg/dL (8.5-10.1); CREATININE 0.8 mg/dL (0.6-1.3); MAGNESIUM 2.2 mg/dL (1.8-2.4); PHOSPHORUS 4.6 mg/dL (2.5-4.9); POTASSIUM 3.3 mmol/L (3.5-5.1)
--- NOTE | 2021-12-03 07:25 | NUR ---
MS RN OPENING NOTES RECEIVED PATIENT IN BED; AWAKE, ALERT AND ORIENTED X4. ABLE TO MAKE NEEDS KNOWN. ON ROOM AIR, WELL TOLERATED. BREATHING IS EVEN AND UNLABORED, NOT IN ANY SIGN OF RESPIRATORY DISTRESS NOTED. IV ACCESS ON DENISE MIDLINE G#18 INTACT AND PATENT WITH NS INFUSING AT 75ML/HR. SAFETY MEASURES IMPLEMENTED: CALL BUTTON AND TABLE WITHIN EASY REACH, SIDE RAILS UP X2, BED IN LOWEST AND LOCKED POSITION. WILL CONTINUE TO MONITOR AND WITH PLAN OF CARE.
[2021-12-03 07:55] LABS: BASOPHILS % (AUTO) 0.4 % (0.0-2.0); EOSINOPHILS % (AUTO) 2.4 % (0.0-6.0); HEMATOCRIT 36 % (33-45); HEMOGLOBIN 11.7 g/dL (11.5-14.8); LYMPHOCYTES # (AUTO) 1.9 K/uL (0.8-4.8); LYMPHOCYTES % (AUTO) 28.7 % (20.0-44.0); MEAN CORPUSCULAR HGB CONC 33 g/dl (31.0-36.0); MEAN CORPUSCULAR VOLUME 83 fL (82-100); MONOCYTES # (AUTO) 0.7 K/uL (0.1-1.30); MONOCYTES % (AUTO) 9.9 % (2.0-12.0); NEUTROPHILS % (AUTO) 58.6 % (43.0-81.0); PLATELET COUNT (AUTO) 247 K/uL (150-450); RED BLOOD CELL COUNT(AUTO) 4.32 MIL/uL (4.0-5.2); WHITE BLOOD COUNT (AUTO) 6.8 K/uL (4.3-11.0)
[2021-12-03 08:00] VITALS: BP 128/83
[2021-12-03] MEDS ORDERED: POTASSIUM CHLORIDE 20 MEQ TAB.PRT.SR PO SCH (12:00)
--- NOTE | 2021-12-03 13:12 | NUR ---
RN NOTES PT REQUESTED IF HER PAIN MEDICATION DILAUDID CAN BE INCREASED BECAUSE CURRENT DOSE IS NOT EFFECTIVE. CALLED DR. HUA WITH ORDERS TO INCREASED DILAUDID FROM 1MG TO 2MG IV Q4HRS PRN FOR PAIN.
[2021-12-03] MEDS: HYDROMORPHONE INJ 2 MG/ML DISP.SYRIN IV PRN ×3 (13:16→22:38)
--- NOTE | 2021-12-03 13:30 | NUR ---
RN NOTES BODY ASSESSMENT DONE AND PICTURES TAKEN EXCEPT PERINEUM AREA AND BUTTOCKS AREA. PT REFUSED TO HAVE PERINEUM AREA AND BUTTOCKS AREA TO BE ASSESSED WELL PICTURE TO BE TAKEN. EXPLAINED PURPOSE AND RISK, STILL STRONGLY REFUSED.
[2021-12-03 16:00] VITALS: BP 119/80
[2021-12-03] MEDS: LEVOFLOXACIN 500 MG /D5W 100ML 500 MG in PREMIX 1 EA IV SCH ×2 (16:38→16:44)
--- NOTE | 2021-12-03 16:45 | NUR ---
RN NOTES PT INITIALLY AGREED TO HAVE LEVAQUIN IV ANTIBIOTIC, BUT WHEN ABOUT TO INFUSE, PT REFUSED IT. EXPLAINED RISK AND BENEFITS, PT STILL STRONGLY REFUSED TO HAVE THE ANTIBIOTIC.
--- NOTE | 2021-12-03 19:24 | NUR ---
MS RN CLOSING NOTES PATIENT IN BED; AWAKE, ALERT AND ORIENTED X4. ABLE TO MAKE NEEDS KNOWN. ON ROOM AIR, WELL TOLERATED. BREATHING IS EVEN AND UNLABORED, NOT IN ANY SIGN OF RESPIRATORY DISTRESS NOTED. IV ACCESS ON DENISE MIDLINE G#18 INTACT AND PATENT WITH NS INFUSING AT 75ML/HR. PT IS AMBULATORY AND STEADY. ALL NEEDS ATTENDED. SAFETY MEASURES IMPLEMENTED: CALL BUTTON AND TABLE WITHIN EASY REACH, SIDE RAILS UP X2, BED IN LOWEST AND LOCKED POSITION. ENDORSED TO HAND PATTERN MARKER NURSE.
--- NOTE | 2021-12-03 19:41 | NUR ---
RN OPENING NOTES RECEIVED PT IN BED, AWAKE, SITTING UPRIGHT. AOx4, ABLE TO MAKE NEEDS KNOWN. ON RA AND TOLERATING WELL. NO SOB NOTED. NO S/SX OF RESPIRATORY DISTRESS NOTED. IV ACCESS IN DENISE MIDLINE #18G RUNNING NS @ 75 ML/HR. SAFETY PRECAUTIONS IN PLACE: BED IN LOWEST, LOCKED POSITION, SIDERAILS UPx2, AND BRAKES ON. TABLE AND CALL LIGHT WITHIN REACH. WILL CONTINUE TO MONITOR.
[2021-12-03 20:00] VITALS: BP 131/80
--- NOTE | 2021-12-03 20:12 | NUR ---
DID NOT ADMINISTERED FLAGYL BECAUSE PATIENT SAID "SHE HAD ALLERGIC REACTION TO ANTIBIOTICS IN [place]." ALSO STATED SHE GOT HIVES AND PROCEEDED TO SHOW RASH ON CHEST AND ARMS. WILL CONTACT GAGE PAREDES.
[2021-12-03] MEDS: IV NS 0.9% 1,000 ML IV PRN (20:14)
--- NOTE | 2021-12-03 22:38 | NUR ---
ADMINISTERED DILAUDID FOR PAIN PER MD ORDER. VS WNL. WILL CONTINUE TO MONITOR.
[2021-12-04] MEDS: diphenhydrAMINE HCL 25 MG CAPSULE PO PRN ×3 (00:40→20:01)
[2021-12-04] MEDS: POLYVINYL ALCOHOL 15 ML BOTTLE EACHEYE PRN ×2 (00:40→21:00)
[2021-12-04] MEDS: HYDROMORPHONE INJ 2 MG/ML DISP.SYRIN IV PRN ×6 (02:24→21:00)
--- NOTE | 2021-12-04 02:24 | NUR ---
ADMINISTERED DILAUDID FOR PAIN PER MD ORDER. VS WNL. WILL CONTINUE TO MONITOR.
[2021-12-04] MEDS: METRONIDAZOLE 500MG/ NS 100ML 500 MG in PREMIX 1 EA IV SCH ×3 (05:00→21:00)
--- NOTE | 2021-12-04 06:45 | NUR ---
ADMINISTERED DILAUDID FOR PAIN PER MD ORDER. VS WNL. WILL CONTINUE TO MONITOR.
--- NOTE | 2021-12-04 06:51 | NUR ---
RN CLOSING NOTES PT IN BED, AWAKE, SITTING UPRIGHT. AOx4, ABLE TO MAKE NEEDS KNOWN. ON RA AND TOLERATING WELL. NO SOB NOTED. NO S/SX OF RESPIRATORY DISTRESS NOTED. IV ACCESS IN DENISE MIDLINE #18G RUNNING NS @ 75 ML/HR. ALL ORDERS CARRIED OUT. ALL NEEDS MET. PT KEPT CLEAN AND DRY. TREATED PAIN THROUGHOUT SHIFT. SAFETY PRECAUTIONS IN PLACE: BED IN LOWEST, LOCKED POSITION, SIDERAILS UPx2, AND BRAKES ON. TABLE AND CALL LIGHT WITHIN REACH. WILL ENDORSE TO ONCOMING SHIFT FOR BEATRICE.
[2021-12-04 07:06] LABS: CALCIUM, SERUM 8.4 mg/dL (8.5-10.1); CREATININE 0.7 mg/dL (0.6-1.3); POTASSIUM 3.4 mmol/L (3.5-5.1)
[2021-12-04 08:26] VITALS: BP 163/92
[2021-12-04] MEDS ORDERED: POTASSIUM CHLORIDE 20 MEQ POWDER PACKET PO SCH (10:00)
[2021-12-04] MEDS: IV NS 0.9% 1,000 ML IV PRN (11:16)
[2021-12-04] MEDS ORDERED: HYDROMORPHONE INJ 2 MG/ML DISP.SYRIN IV PRN (13:00)
[2021-12-04 16:16] VITALS: BP 156/92
[2021-12-04] MEDS: LEVOFLOXACIN 500 MG /D5W 100ML 500 MG in PREMIX 1 EA IV SCH (17:00)
--- NOTE | 2021-12-04 18:49 | NUR ---
MS RN CLOSING NOTES PATIENT IN BED; AWAKE, ALERT AND ORIENTED X4. ABLE TO MAKE NEEDS KNOWN. ON ROOM AIR, WELL TOLERATED. BREATHING IS EVEN AND UNLABORED, NOT IN ANY SIGN OF RESPIRATORY DISTRESS NOTED. IV ACCESS ON DENISE MIDLINE G#18 INTACT AND PATENT WITH NS INFUSING AT 75ML/HR. PT IS AMBULATORY AND STEADY. ALL NEEDS ATTENDED. SAFETY MEASURES IMPLEMENTED: CALL BUTTON AND TABLE WITHIN EASY REACH, SIDE RAILS UP X2, BED IN LOWEST AND LOCKED POSITION. WILL ENDORSE TO HELPER METAL HANGING NURSE.
[2021-12-04 20:00] VITALS: BP 147/99
--- NOTE | 2021-12-04 20:09 | NUR ---
MS/TELE/RN PATIENT IS AWAKE, ALERT, ORIENTED, NO SIGNS OF DISTRESS NOTED, APPEARS COMFORTABLE, C/O ITCHING BUE AND BOTH FEET, REQUESTED BENADRYL. BENADRYL 25 MG PO WAS GIVEN ORDERED. WILL MONITOR.
--- NOTE | 2021-12-04 21:10 | NUR ---
MS/TELE/RN PATIENT REFUSED FLAGYL IV DUE TO HER C/O ITCHING ALLEGEDLY BECAUSE OF THE ANTIBIOTIC. DOCTOR JAVID WAS AWARE PER DAY SHIFT RN REPORT.
[2021-12-05] MEDS: HYDROMORPHONE INJ 2 MG/ML DISP.SYRIN IV PRN ×7 (00:06→22:06)
[2021-12-05] MEDS: IV NS 0.9% 1,000 ML IV PRN ×2 (00:50→15:41)
--- NOTE | 2021-12-05 02:12 | NUR ---
MS/TELE/RN PATIENT IS SLEEPING AT THIS TIME, APPEARS COMFORTABLE, NO SIGNS OF DISTRESS NOTED, CALL LIGHT IN REACH, WILL CONTINUE TO MONITOR.
[2021-12-05] MEDS: POLYVINYL ALCOHOL 15 ML BOTTLE EACHEYE PRN ×2 (03:00→09:04)
[2021-12-05] MEDS: METRONIDAZOLE 500MG/ NS 100ML 500 MG in PREMIX 1 EA IV SCH ×3 (05:00→21:00)
--- NOTE | 2021-12-05 05:56 | NUR ---
MS RN NOTES PT C/O ABDOMINAL PAIN 03/28. TOOK PRN DILAUDID FROM [facility] AND PER JUAN DIEGO HEATH, SHE WILL ADMINISTER IT SINCE SHE WILL DRAW BLOOD FROM PT.
--- NOTE | 2021-12-05 06:23 | NUR ---
MS/TELE/RN PATIENT APPEARS SLEEPING AT THIS TIME, APPEARS COMFORTABLE, NO SIGNS OF DISTRESS NOTED, CALL LIGHT IN REACH, ALL NEEDS ATTENDED AT THIS TIME, WILL CONTINUE TO MONITOR.
[2021-12-05 06:38] LABS: BASOPHILS % (AUTO) 0.6 % (0.0-2.0); EOSINOPHILS % (AUTO) 2.4 % (0.0-6.0); HEMATOCRIT 37 % (33-45); HEMOGLOBIN 11.9 g/dL (11.5-14.8); LYMPHOCYTES # (AUTO) 2.1 K/uL (0.8-4.8); LYMPHOCYTES % (AUTO) 33.4 % (20.0-44.0); MEAN CORPUSCULAR HGB CONC 33 g/dl (31.0-36.0); MEAN CORPUSCULAR VOLUME 83 fL (82-100); MONOCYTES # (AUTO) 0.5 K/uL (0.1-1.30); MONOCYTES % (AUTO) 7.8 % (2.0-12.0); NEUTROPHILS # (AUTO) 3.4 K/uL (1.8-8.9); NEUTROPHILS % (AUTO) 55.8 % (43.0-81.0); PLATELET COUNT (AUTO) 242 K/uL (150-450); RED BLOOD CELL COUNT(AUTO) 4.39 MIL/uL (4.0-5.2); WHITE BLOOD COUNT (AUTO) 6.2 K/uL (4.3-11.0)
--- NOTE | 2021-12-05 07:12 | NUR ---
WOUND CARE CONSULT: PT SEEN FOR RT HAND DRY SCRATCH. PT STATES SCRATCHED HER SKIN. NO DRAINAGE, ERYTHEMA OR TENDERNESS NOTED AT THIS TIME.
[2021-12-05 07:13] LABS: CALCIUM, SERUM 8.7 mg/dL (8.5-10.1); CREATININE 0.8 mg/dL (0.6-1.3); MAGNESIUM 2.2 mg/dL (1.8-2.4); PHOSPHORUS 3.9 mg/dL (2.5-4.9); POTASSIUM 4.2 mmol/L (3.5-5.1)
--- NOTE | 2021-12-05 07:34 | NUR ---
MS ADAMSON OPENING NOTES: RECEIVED PATIENT IN BED AWAKE,ABLE TO VERBALIZED NEEDS. NO SOB NO CARDIAC DISTRESS NOTED, NOTED WITH NORMAL UNLABORED BREATHING PATTERN, ON ROOM AIR AND TOLERATING WELL. NOTED WITH IV ACESS ON RAC G#20 SALINE LOCKED. SAFETY MEASURES MAINTAINED: BED LOCKED AND IN LOWEST POSITON, SIDE RAILS UP X2. CALL LIGHT IN EASY REACH FOR HELP/ASSISTANCE. Addendum: 12/05/21 at 0806 by SAMUEL MOORE RN ERROR DISREGARD THIS NOTES
[2021-12-05] MEDS: diphenhydrAMINE HCL 25 MG CAPSULE PO PRN (09:04)
[2021-12-05] MEDS ORDERED: diphenhydrAMINE HCL 50 MG/ML VIAL IV PRN (14:00)
[2021-12-05] MEDS ORDERED: KETOROLAC TROMETHAMINE INJ 30 MG/ML VIAL IV PRN (14:00)
[2021-12-05] MEDS: ONDANSETRON HCL/PF 4 MG/2 ML VIAL IVP PRN (15:36)
[2021-12-05] MEDS: LEVOFLOXACIN 500 MG /D5W 100ML 500 MG in PREMIX 1 EA IV SCH (17:00)
--- NOTE | 2021-12-05 17:00 | NUR ---
RN MS NOTES PT IN BED, AWAKE, ALERT AND ORIENTED, PT SEEN BY DR. HOUSE, PAIN MEDS CHANGED FROM DILAUDID TO TORADOL, PER PT HER MD TOLD HER NOT TO TAKE NSAIDS, MD ORDERED MORPHINE BUT PT STATES THAT SHE IS ALSO ALLERGIC TO IT, PT ABLE TO AMBULATE INSIDE HER ROOM AND ALONG [place] HALLWAY, AWAITING PAIN MANAGEMENT CONSULT BY DR. BATISTA, AWAITING FURTHER ORDERS FROM .
--- NOTE | 2021-12-05 17:02 | NUR ---
RN MS NOTES PT ALSO REFUSES HER IV ATB, STATED THAT SHE IS HAVING ITCHINESS AND RASHES, DR. HOUSE AWARE.
--- NOTE | 2021-12-05 17:36 | NUR ---
RN MS NOTES PT SEEN AND EXAMINED BY DR. BATISTA, ORDERS GIVEN.
[2021-12-05] MEDS ORDERED: oxyCODONE/APAP (5/325 MG) 1 UDTAB TABLET PO PRN (18:00)
--- NOTE | 2021-12-05 19:00 | NUR ---
RN MS NOTES PT IN BED, AWAKE, ALERT AND ORIENTED, PAIN MEDICATION GIVEN FOR PAIN MANAGEMENT, NO COMPLAINT OF SOB, ABLE TO AMBULATE INSIDE HER ROOM AND ALONG THE HALLWAY, IV FLUIDS INFUSING WELL, KEPT NPO, ALL NEEDS ATTENDED.
[2021-12-05 20:00] VITALS: BP 171/106
[2021-12-05] MEDS: HYDROMORPHONE 1 MG/1 ML DISP.SYRIN IV PRN (20:02)
--- NOTE | 2021-12-05 21:47 | NUR ---
RN notes Leave a message for Dr. Mann to confirm Pt's schedule for colonoscopy tomorrow. awaiting for MD to call back. Primary nurse JUAN DIEGO Wilkins is aware and informed. House Sup. is aware and informed.
[2021-12-06] VITALS: BP 136/84
[2021-12-06] MEDS: HYDROMORPHONE INJ 2 MG/ML DISP.SYRIN IV PRN ×5 (01:27→20:05)
[2021-12-06 02:15] VITALS: BP 136/84
[2021-12-06] MEDS: IV NS 0.9% 1,000 ML IV PRN ×2 (04:53→17:07)
[2021-12-06] MEDS: ONDANSETRON HCL/PF 4 MG/2 ML VIAL IVP PRN ×2 (04:55→22:22)
[2021-12-06] MEDS: METRONIDAZOLE 500MG/ NS 100ML 500 MG in PREMIX 1 EA IV SCH ×5 (05:00→22:07)
--- NOTE | 2021-12-06 06:59 | NUR ---
MS/TELE/RN PATIENT IS SLEEPING, APPEAR COMFORTABLE, NO SIGNS OF DISTRESS NOTED, CALL LIGHT IN REACH, ALL NEEDS ATTENDED AT THIS TIME, WILL CONTINUE TO MONITOR.
[2021-12-06 07:06] LABS: CALCIUM, SERUM 8.1 mg/dL (8.5-10.1); CREATININE 0.6 mg/dL (0.6-1.3); MAGNESIUM 2.2 mg/dL (1.8-2.4); POTASSIUM 3.6 mmol/L (3.5-5.1)
--- NOTE | 2021-12-06 07:45 | NUR ---
RN OPENING NOTE PATIENT IN BED RESTING, SLEEPING, AWAKENS TO VERBAL STIMULI. A/O X 4. PAIN 9/10 AT THIS TIME, PAIN MEDICATION WILL BE GIVEN AT SCHEDULE TIME. ON ROOM AIR, NO DISTRESS OR SHORTNESS OF BREATH NOTED. IV ACCESS DENISE MIDLINE, INTACT, PATENT AND FLUSHING WELL. FALL AND SAFETY MEASURES IN PLACE, BED ALARM ON, BED IN LOW AND LOCK POSITION, CALL LIGHT AND TABLE WITHIN EASY REACH, SIDE RAILS UP X2. WILL CONTINUE TO MONITOR.
[2021-12-06 08:00] VITALS: BP 119/77
[2021-12-06] MEDS: HYDROMORPHONE 1 MG/1 ML DISP.SYRIN IV PRN ×4 (08:24→22:11)
[2021-12-06 10:18] LABS: BASOPHILS % (AUTO) 0.4 % (0.0-2.0); EOSINOPHILS % (AUTO) 2.1 % (0.0-6.0); HEMATOCRIT 39 % (33-45); HEMOGLOBIN 12.2 g/dL (11.5-14.8); LYMPHOCYTES # (AUTO) 1.8 K/uL (0.8-4.8); MEAN CORPUSCULAR HGB CONC 31 g/dl (31.0-36.0); MEAN CORPUSCULAR VOLUME 86 fL (82-100); MONOCYTES # (AUTO) 0.5 K/uL (0.1-1.30); MONOCYTES % (AUTO) 8.8 % (2.0-12.0); NEUTROPHILS # (AUTO) 3.5 K/uL (1.8-8.9); NEUTROPHILS % (AUTO) 58.7 % (43.0-81.0); PLATELET COUNT (AUTO) 223 K/uL (150-450); RED BLOOD CELL COUNT(AUTO) 4.54 MIL/uL (4.0-5.2)
--- NOTE | 2021-12-06 13:32 | NUR ---
RN NOTE PATIENT 1300 FLAGYL WAS NOT ADMINISTERED, PATIENT REFUSED AND STATED THAT SHE IS ALLERGIC TO FLAGYL.
[2021-12-06 16:00] VITALS: BP 150/91
[2021-12-06] MEDS: LEVOFLOXACIN 500 MG /D5W 100ML 500 MG in PREMIX 1 EA IV SCH (16:54)
--- NOTE | 2021-12-06 16:54 | NUR ---
RN NOTE PATIENT 1700 LEVAQUIN WAS NOT ADMINISTERED, PATIENT REFUSED AND STATED THAT SHE GOT ITCHY LAST TIME SHE GO IT.
[2021-12-06] MEDS ORDERED: PEG 3350/NA SULF,BICARB,CL/KCL 4,000 ML BOTTLE PO ONE (18:00)
--- NOTE | 2021-12-06 18:34 | NUR ---
RN CLOSING NOTE PATIENT IN BED RESTING, AWAKE. A/O X 4. PAIN 3/10 AT THIS TIME, PAIN MEDICATION GIVEN THROUGHOUT THE SHIFT FOR PAIN MANAGEMENT. ON ROOM AIR, NO DISTRESS OR SHORTNESS OF BREATH NOTED. IV ACCESS DENISE MIDLINE, INTACT, PATENT AND FLUSHING WELL. FALL AND SAFETY MEASURES IN PLACE, BED ALARM ON, BED IN LOW AND LOCK POSITION, CALL LIGHT AND TABLE WITHIN EASY REACH, SIDE RAILS UP X2. WILL ENDORSE TO PROFESSOR OF COMMUNICATION AND WRITING.
--- NOTE | 2021-12-06 19:50 | NUR ---
RECEIVED PATIENT IN BED, ALERT AND ORIENTED X4, INDEPENDENT WITH AMBULATION, COMPLAINING OF ABDOMINAL PAIN AND NAUSEA, NPO AT THIS TIME, DX COLITIS, WILL GIVE PAIN MEDICATION.
[2021-12-06 20:00] VITALS: BP 180/102
--- NOTE | 2021-12-06 20:35 | NUR ---
PATIENT REFUSED FLAGYL, PER PATIENT HAS ALLERGY TO FLAGYL.
[2021-12-06] MEDS: CLONIDINE HCL 0.1 MG TABLET PO PRN (22:01)
--- NOTE | 2021-12-07 | NUR ---
REFUSING TO DRINK ANYMORE GOLYTELY, EXPLAINED TO PATIENT ITS PURPOSE, PER PATIENT, FEELING NAUSEOUS, GIVEN ZOFRAN.
[2021-12-07] MEDS: HYDROMORPHONE INJ 2 MG/ML DISP.SYRIN IV PRN ×6 (00:37→22:18)
[2021-12-07] MEDS: HYDROMORPHONE 1 MG/1 ML DISP.SYRIN IV PRN ×5 (02:27→19:55)
[2021-12-07] MEDS: ONDANSETRON HCL/PF 4 MG/2 ML VIAL IVP PRN ×2 (04:43→11:47)
[2021-12-07] MEDS: IV NS 0.9% 1,000 ML IV PRN ×2 (04:44→19:33)
--- NOTE | 2021-12-07 06:21 | NUR ---
COMPLAINING OF ABDOMINAL PAIN, ROUND THE CLOCK DILAUDID 1 MG IV Q4HRS AND DILAUDID 2 MG IV Q4HRS, MODERATE RELIEF, NO ADVERSE SIDE EFFECTS, ZOFRAN GIVEN FOR NAUSEA, REFUSED FLAGYL AND LEVAQUIN, PER PATIENT HAS ALLERGY. ALSO REFUSED BLOOD DRAW THIS MORNING. PLANNED COLONOSCOPY TODAY DR. OROZCO, CONSENT SIGNED. REMAINED NPO, NS AT 75 ML/HR.
--- NOTE | 2021-12-07 07:00 | NUR ---
MS RN OPENING NOTE PATIENT LAYING IN BED, A/O X 4, ABLE TO MAKE NEEDS KNOWN. COMPLAINT OF 8/10 BACK PAIN, PAIN MEDICATION TO BE ADMINISTERED. TOLERATING WELL ON ROOM AIR WITH NO S/S RESPIRATORY DISTRESS OR SOB. DENISE MIDLINE CLEAN, INTACT, AND FLUSHING WELL WITH NS @ 75 ML/HR. SAFETY MEASURES IN PLACE: BED IN LOWEST LOCKED POSITION, SIDE RAILS UP X 2, CALL LIGHT WITHIN REACH. WILL CONTINUE TO MONITOR.
[2021-12-07 08:26] VITALS: BP 136/92
--- NOTE | 2021-12-07 08:47 | NUR ---
MS RN NOTES PATIENT COMPLAINT OF 8/10 BILATERAL LEG PAIN AND REQUESTING PAIN MEDICATION. PRN DILAUDED 2 MG IVP ADMINISTERED ORDERED. WILL CONTINUE TO MONITOR FOR S/S OF PAIN.
--- NOTE | 2021-12-07 12:18 | NUR ---
MS RN NOTES PATIENT COMPLAINT OF 7/10 BILATERAL LEG PAIN AND REQUESTING PAIN MEDICATION. PRN DILAUDED 1 MG IVP ADMINISTERED ORDERED. WILL CONTINUE TO MONITOR FOR S/S OF PAIN.
[2021-12-07 13:11] LABS: BASOPHILS % (AUTO) 0.4 % (0.0-2.0); EOSINOPHILS % (AUTO) 1.3 % (0.0-6.0); HEMATOCRIT 38 % (33-45); HEMOGLOBIN 11.9 g/dL (11.5-14.8); LYMPHOCYTES # (AUTO) 1.1 K/uL (0.8-4.8); LYMPHOCYTES % (AUTO) 21.4 % (20.0-44.0); MEAN CORPUSCULAR HGB CONC 31 g/dl (31.0-36.0); MEAN CORPUSCULAR VOLUME 86 fL (82-100); MONOCYTES # (AUTO) 0.4 K/uL (0.1-1.30); MONOCYTES % (AUTO) 7.4 % (2.0-12.0); NEUTROPHILS # (AUTO) 3.7 K/uL (1.8-8.9); NEUTROPHILS % (AUTO) 69.5 % (43.0-81.0); PLATELET COUNT (AUTO) 217 K/uL (150-450); WHITE BLOOD COUNT (AUTO) 5.4 K/uL (4.3-11.0)
[2021-12-07 13:25] LABS: CALCIUM, SERUM 8.5 mg/dL (8.5-10.1); CREATININE 0.6 mg/dL (0.6-1.3); MAGNESIUM 2.1 mg/dL (1.8-2.4); PHOSPHORUS 3.5 mg/dL (2.5-4.9)
--- NOTE | 2021-12-07 13:45 | NUR ---
MS RN NOTES PATIENT COMPLAINT OF 8/10 BILATERAL LEG PAIN AND REQUESTING MEDICATION. PRN DILAUDED 2 MG IVP ADMINISTERED ORDERED. WILL CONTINUE TO MONITOR FOR S/S OF PAIN.
--- NOTE | 2021-12-07 15:46 | NUR ---
MS RN NOTES PATIENT CONSUMED REST OF PRESCRIBED GOLYTELY THIS AFTERNOON PRIOR TO COLONOSCOPY.
--- NOTE | 2021-12-07 15:52 | NUR ---
MS RN NOTES PATIENT COMPLAINT OF 8/10 BILATERAL LEG PAIN AND REQUESTING PAIN MEDICATION. PRN DILAUDED 1 MG IVP ADMINISTERED ORDERED. WILL CONTINUE TO MONITOR FOR S/S OF PAIN.
[2021-12-07 16:05] VITALS: BP 165/110
[2021-12-07] MEDS: LEVOFLOXACIN 500 MG /D5W 100ML 500 MG in PREMIX 1 EA IV SCH (17:23)
--- NOTE | 2021-12-07 17:50 | NUR ---
MS RN NOTES PATIENT COMPLAINT OF 9/10 BILATERAL LEG PAIN AND REQUESTING MEDICATION. PRN DILAUDED 2 MG IVP ADMINISTERED ORDERED. WILL CONTINUE TO MONITOR FOR S/S OF PAIN.
[2021-12-07] MEDS: CLONIDINE HCL 0.1 MG TABLET PO PRN (18:05)
--- NOTE | 2021-12-07 18:06 | NUR ---
MS ADAMSON NOTES PATIENT NOTED WITH SBP>160 (165 mm Hg). CLONIDINE 0.1 MG PO ADMINISTERED ORDERED. WILL CONTINUE TO MONITOR FOR S/S HYPERTENSION. Addendum: 12/07/21 at 1845 by PARDEEP DONAHUE RN FOLLOW UP BP @ 1842 142/104 (BP DECREASED FROM 165/110 @ 1806).
--- NOTE | 2021-12-07 19:26 | NUR ---
RN OPENING NOTES RECEIVED PT STANDING AT BEDSIDE, AWAKE. AOx4, ABLE TO MAKE NEEDS KNOWN. ON RA AND TOLERATING WELL. NO SOB NOTED. NO S/SX OF RESPIRATORY DISTRESS NOTED. IV ACCESS IN DENISE MIDLINE RUNNING NS @ 75 ML/HR. SAFETY PRECAUTIONS IN PLACE: BED IN LOWEST, LOCKED POSITION, SIDERAILS UPx2, AND BRAKES ON. TABLE AND CALL LIGHT WITHIN REACH. WILL CONTINUE TO MONITOR.
--- NOTE | 2021-12-07 19:56 | NUR ---
RN NOTE ADMINISTERED DILAUDID FOR PAIN PER MD ORDER. VS WNL. WILL CONTINUE TO MONITOR.
[2021-12-07 20:00] VITALS: BP 143/98
--- NOTE | 2021-12-07 22:19 | NUR ---
RN NOTE ADMINISTERED DILAUDID FOR PAIN PER MD ORDER. VS WNL. WILL CONTINUE TO MONITOR.
[2021-12-08] VITALS (9 sets, daily range): BP systolic 136–174; BP diastolic 75–110
[2021-12-08] MEDS: HYDROMORPHONE 1 MG/1 ML DISP.SYRIN IV PRN ×5 (00:09→23:15)
--- NOTE | 2021-12-08 00:10 | NUR ---
RN NOTE ADMINISTERED DILAUDID FOR PAIN PER MD ORDER. VS WNL. WILL CONTINUE TO MONITOR.
[2021-12-08] MEDS: HYDROMORPHONE INJ 2 MG/ML DISP.SYRIN IV PRN ×3 (02:23→13:54)
--- NOTE | 2021-12-08 02:23 | NUR ---
RN NOTE ADMINISTERED DILAUDID FOR PAIN PER MD ORDER. VS WNL. WILL CONTINUE TO MONITOR.
--- NOTE | 2021-12-08 05:14 | NUR ---
RN NOTE ADMINISTERED DILAUDID FOR PAIN PER MD ORDER. VS WNL. WILL CONTINUE TO MONITOR.
--- NOTE | 2021-12-08 06:44 | NUR ---
RN CLOSING NOTES PT IN BED, AWAKE, SITTING UPRIGHT IN BED. AOx4, ABLE TO MAKE NEEDS KNOWN. ON RA AND TOLERATING WELL. NO SOB NOTED. NO S/SX OF RESPIRATORY DISTRESS NOTED. IV ACCESS IN DENISE MIDLINE RUNNING NS @ 75 ML/HR. ALL ORDERS CARRIED OUT. ALL NEEDS MET. PT KEPT CLEAN AND DRY. SAFETY PRECAUTIONS IN PLACE: BED IN LOWEST, LOCKED POSITION, SIDERAILS UPx2, AND BRAKES ON. TABLE AND CALL LIGHT WITHIN REACH. WILL ENDORSE TO ONCOMING
--- NOTE | 2021-12-08 07:39 | NUR ---
MS RN OPENING NOTES: RECEIVED PATIENT IN BED AWAKE AND ABLE TO VERBALIZED NEEDS. ALERT AND ORIENTED X4. NO SOB OR CARDIAC DISTRESS NOTED, ON ROOM AIR AND TOLERATING WELL. MAINTAINED ON NPO. NOTED WITH IV MIDLINE ON DENISE NS @75ML/HR INFUSING WELL. KEPT COMFORTABLE. SAFETY MEASURES MAINTAINED : BED IN LOCKED AND LOWEST POSITION. SIDE RAILS UP X2, CALL LIGHT IN EASY REACH FOR HELP/ASSISTANCE. WILL MONITOR FOR ANY SIGNIFICANT CHANGES.
[2021-12-08 08:27] LABS: BASOPHILS % (AUTO) 0.5 % (0.0-2.0); EOSINOPHILS % (AUTO) 2.2 % (0.0-6.0); HEMATOCRIT 34 % (33-45); LYMPHOCYTES # (AUTO) 1.4 K/uL (0.8-4.8); LYMPHOCYTES % (AUTO) 27.6 % (20.0-44.0); MEAN CORPUSCULAR HGB CONC 33 g/dl (31.0-36.0); MEAN CORPUSCULAR VOLUME 84 fL (82-100); MONOCYTES # (AUTO) 0.5 K/uL (0.1-1.30); MONOCYTES % (AUTO) 10.2 % (2.0-12.0); NEUTROPHILS % (AUTO) 59.5 % (43.0-81.0); PLATELET COUNT (AUTO) 217 K/uL (150-450); RED BLOOD CELL COUNT(AUTO) 4.05 MIL/uL (4.0-5.2)
[2021-12-08 08:49] LABS: CALCIUM, SERUM 8.8 mg/dL (8.5-10.1); CREATININE 0.7 mg/dL (0.6-1.3); PHOSPHORUS 3.4 mg/dL (2.5-4.9); POTASSIUM 3.5 mmol/L (3.5-5.1)
[2021-12-08] MEDS: IV NS 0.9% 1,000 ML IV PRN (09:10)
--- NOTE | 2021-12-08 11:35 | NUR ---
RN NOTES PT PICKED-UP FOR COLONOSCOPY
--- NOTE | 2021-12-08 13:25 | NUR ---
RN NOTES: PATIENT CAME BACK FROM SURGERY, S/P COLONOSCOPY THAT WAS ABATED BECAUSE PATIENT IS NOT COMPLETELY CLEAN.PATIENT AWAKE, ALERT AND ORIENTED X4. VITAL SIGNS CHECKED AND RECORDED. NO SOB OR CARDIAC DISTRESS AT THIS TIME.
[2021-12-08] MEDS: ONDANSETRON HCL/PF 4 MG/2 ML VIAL IVP PRN ×2 (13:57→18:12)
[2021-12-08] MEDS: CLONIDINE HCL 0.1 MG TABLET PO PRN ×2 (14:18→23:41)
[2021-12-08] MEDS: LEVOFLOXACIN 500 MG /D5W 100ML 500 MG in PREMIX 1 EA IV SCH (16:57)
--- NOTE | 2021-12-08 19:08 | NUR ---
MS RN CLOSING NOTES: PATIENT IN BED AWAKE, SITTING IN HER BED, ALERT ORIENTED X 4 AND ABLE TO VERBALIZED NEEDS. ALERT AND ORIENTED X4. NO SOB OR CARDIAC DISTRESS NOTED, ON ROOM AIR AND TOLERATING WELL. NOTED WITH IV MIDLINE ON DENISE NS @75ML/HR INFUSING WELL. KEPT COMFORTABLE. SAFETY MEASURES MAINTAINED : BED IN LOCKED AND LOWEST POSITION. SIDE RAILS UP X2, CALL LIGHT IN EASY REACH FOR HELP/ASSISTANCE. WILL MONITOR FOR ANY SIGNIFICANT CHANGES. ENDORSED TO RESOLUTION AGENT NURSE FOR CONTINUITY OF CARE.
--- NOTE | 2021-12-08 20:06 | NUR ---
MS RN OPENING NOTES; RECEIVED PATIENT AWAKE IN BED , BED IN LOW POSITION, CALL LIGHTS WITHIN REACH, NO COMPLAIN OF PAIN AND DISCOMFORT AT THIS TIME, ON ROOM AIR SATURATING WELL, PATIENT IS A/OX4 AMBULATORY ABLE TO MAKE NEEDS KNOWN, WITH DENISE ML WITH ONGOING NSS@75ML PER HOUR INFUSING WELL, PATIENT KEPT CLEAN AND DRY ALL NEEDS MET WILL CONTINUE TO MONITOR,
[2021-12-08] MEDS: oxyCODONE/APAP (5/325 MG) 1 UDTAB TABLET PO PRN (21:16)
[2021-12-09] VITALS: BP 172/113
[2021-12-09] MEDS: oxyCODONE/APAP (5/325 MG) 1 UDTAB TABLET PO PRN ×2 (03:09→09:14)
--- NOTE | 2021-12-09 05:00 | NUR ---
RN NOTES: STAT TROPONIN RESULT IS 6 REFERENCE VALUE IS 4-50 WILL ENDORSE TO AM CN.
[2021-12-09 05:03] LABS: BASOPHILS % (AUTO) 0.6 % (0.0-2.0); EOSINOPHILS % (AUTO) 0.5 % (0.0-6.0); HEMATOCRIT 37 % (33-45); HEMOGLOBIN 11.9 g/dL (11.5-14.8); LYMPHOCYTES # (AUTO) 0.8 K/uL (0.8-4.8); LYMPHOCYTES % (AUTO) 11.5 % (20.0-44.0); MEAN CORPUSCULAR HGB CONC 32 g/dl (31.0-36.0); MEAN CORPUSCULAR VOLUME 83 fL (82-100); MONOCYTES # (AUTO) 0.5 K/uL (0.1-1.30); MONOCYTES % (AUTO) 6.9 % (2.0-12.0); NEUTROPHILS # (AUTO) 5.3 K/uL (1.8-8.9); NEUTROPHILS % (AUTO) 80.5 % (43.0-81.0); PLATELET COUNT (AUTO) 215 K/uL (150-450); RED BLOOD CELL COUNT(AUTO) 4.42 MIL/uL (4.0-5.2); WHITE BLOOD COUNT (AUTO) 6.5 K/uL (4.3-11.0)
[2021-12-09 05:22] LABS: CREATININE 0.7 mg/dL (0.6-1.3); PHOSPHORUS 3.4 mg/dL (2.5-4.9); POTASSIUM 3.4 mmol/L (3.5-5.1)
[2021-12-09] MEDS: IV NS 0.9% 1,000 ML IV PRN (06:29)
[2021-12-09] MEDS: HYDROMORPHONE 1 MG/1 ML DISP.SYRIN IV PRN (06:34)
--- NOTE | 2021-12-09 06:55 | NUR ---
MS RN CLOSING NOTES: PATIENT SLEEP IN BED COMFORTABLY,, BED IN LOW POSITION, CALL LIGHTS WITHIN REACH, NO COMPLAIN OF PAIN AND DISCOMFORT AT THIS TIME, A/OX4 AMBULATORY ON ROOM AIR SATURATING WELL, WITH IV LINE AT DENISE ML WITH ONGOING NSS @75ML/HR INFUSING WELL, PATIENT KEPT CLEAN AND DRY ALL NEEDS MET ENDORSE TO INCOMING SHIFT.
--- NOTE | 2021-12-09 07:56 | NUR ---
MS RN OPENING NOTES RECEIVED PATIENT AWAKE IN BED, A/O X4, ABLE TO MAKE NEEDS KNOWN. COMPLAINING OF PAIN. LAST PAIN MEDICATION ADMINISTERED BY INSURANCE LOSS ASSESSOR THIS AM. PATIENT IS ON ROOM AIR; BREATHING EVEN AND UNLABORED. DENISE ML WITH ONGOING NS@75ML PER HOUR STOPPED BY INSURANCE LOSS ASSESSOR; PATIENT WAS COMPLAINING THAT SHE CAN NOT GET ENOUGH REST DUE TO FREQUENT URINATION. SAFETY PRECAUTIONS IN PLACE; BED IN LOW POSITION AND LOCKED, RAILS UP X2, CALL LIGHT WITHIN REACH. WILL CONTINUE TO MONITOR PATIENT. WILL CONTINUE TO MONITOR PATIENT.
[2021-12-09 08:00] VITALS: BP 168/111
--- NOTE | 2021-12-09 09:17 | NUR ---
MS RN NOTES PATIENT COMPLAINING OF PAIN 10/10 ABDOMEN; REQUESTING PAIN MEDICATION. PRN PERCOCET 2 TAB 5-325 FOR SEVERE PAIN ADMINISTERED. WILL REASSESS.
[2021-12-09] MEDS ORDERED: POTASSIUM CHLORIDE 20 MEQ TAB.PRT.SR PO SCH (10:00)
--- NOTE | 2021-12-09 12:30 | NUR ---
MS CREDIT UNION MANAGER NOTE PATIENT DISCHARGED HOME IN MEDICALLY STABLE CONDITION. PATIENT A/O X4, ABLE TO MAKE NEED KNOWN. ALL DISCHARGE PAPERWORK READY AND PHYSICIAN DISCHARGE INSTRUCTIONS PROVIDED TO PATIENT; PATIENT VERBALIZED UNDERSTANDING. BELONGINGS ACCOUNTED FOR AND FORM SIGNED WELL. PICTURES TAKEN AND FILED. MIDLINE REMOVED BEFORE PATIENT LEFT THE FLOOR. PATIENT LEFT HE UNIT ACCOMPANIED BY RN AND LEFT THE HOSPITAL VIA [facility].
== END 2021-12-09 12:00 | disposition home or self-care (01) | DRG 249 ==
LOC: ER 12:42 → MED 18:16
PROVIDERS: ADMIT Internal Medicine
PROC: 05HD33Z Insertion of Infusion Device into Right Cephalic Vein, Percutaneous Approach (ICD-10-PCS; 2021-12-02)
PROC: 0DJD8ZZ Inspection of Lower Intestinal Tract, Via Natural or Artificial Opening Endoscopic (ICD-10-PCS; principal; 2021-12-08)
DX: A09 Infectious gastroenteritis and colitis, unspecified (principal); L52 Erythema nodosum; K76.0 Fatty (change of) liver, not elsewhere classified; Z20.822 Contact with and (suspected) exposure to COVID-19; I10 Essential (primary) hypertension; M06.9 Rheumatoid arthritis, unspecified; Z88.1 Allergy status to other antibiotic agents; Z88.5 Allergy status to narcotic agent; Z88.0 Allergy status to penicillin; Z79.899 Other long term (current) drug therapy; E66.9 Obesity, unspecified; Z68.38 Body mass index [BMI] 38.0-38.9, adult; D64.9 Anemia, unspecified; K59.00 Constipation, unspecified
CPT/HCPCS: 36410; 36415; 80048-TC; 80076-TC; 81001; 83690-TC; 83735-TC; 84100-TC; 84484-TC; 84703-TC; 85025-TC; 85730-TC; 87081-TC; A4216; C9803; G0378; J1170; J1885; J1956; J2270; J2405; J2704; J3490; J7030; Q0163

== ENCOUNTER 2022-05-25 02:30 | Emergency (ER) | payer MEDICAID ==
[~2022-05-25] VITALS: Ht 177.8 cm; Wt 122.5 kg
[~2022-05-25 02:30] MED LIST changes: -ATEN100T PO; -BUPR1FIL3 SL; -CIPR-262 PO; +DEXT30TA10 PO; -HYDR-3972 PO; -HYDR-4384 PO; -METR500T PO; +NEBI5TAB8 PO; -ZOLP5TAB2 PO
--- NOTE | 2022-05-25 02:50 | NUR ---
TO ER BED 11. BIBSELF C/O DIFFUSED ABD PAIN SINCE THIS MORNING +N/V/D . PT IS ALERT AND ORIENTED. RR EVEN AND NONLABORED. CONNECTED TO MONITOR. WARM BLANKET PROVIDED
[2022-05-25] MEDS ORDERED: KETOROLAC TROMETHAMINE INJ 30 MG/ML VIAL ONE (03:07)
[2022-05-25] MEDS ORDERED: ONDANSETRON HCL/PF 4 MG/2 ML VIAL ONE (03:07)
--- NOTE | 2022-05-25 03:29 | NUR ---
PT UNABLE TO PROVIDE URINE AT THIS TIME, SAMPLE CUP PROVIDED
[2022-05-25] MEDS ORDERED: IV NS 0.9% 1,000 ML BAG IV ONE (03:30)
[2022-05-25] MEDS ORDERED: ONDANSETRON HCL/PF 4 MG/2 ML VIAL IVP ONE (03:30)
[2022-05-25] MEDS ORDERED: KETOROLAC TROMETHAMINE INJ 30 MG/ML VIAL IV ONE (03:30)
--- NOTE | 2022-05-25 03:31 | NUR ---
PT IS REFUSING IV INSERTION, MADE AWARE
--- NOTE | 2022-05-25 03:31 | NUR ---
BLOOD COLLECTED AND SENT TO LAB
[2022-05-25] MEDS ORDERED: MORPHINE SULFATE INJ 2 MG/ML DISP.SYRIN ONE (03:41)
[2022-05-25] MEDS ORDERED: MORPHINE SULFATE INJ 2 MG/ML DISP.SYRIN IM ONE (04:00)
[2022-05-25 04:06] LABS: BILIRUBIN,URINE 1+ (NEGATIVE); COLOR,URINE YELLOW (YELLOW); LEUKOCYTE ESTERASE ,URINE NEGATIVE (NEGATIVE); NITRITE, URINE NEGATIVE (NEGATIVE); PROTEIN,URINE NEGATIVE (NEGATIVE); UGLUCOSE NEGATIVE (NEGATIVE); UROBILINOGEN,URINE 0.2 EU/dL (0.2)
[2022-05-25 04:10] LABS: ALBUMIN 3.7 g/dL (3.4-5.0); BILIRUBIN,DIRECT 0.1 mg/dL (0.0-0.2); BILIRUBIN,TOTAL 1.2 mg/dL (0.2-1.0); CALCIUM, SERUM 9.4 mg/dL (8.5-10.1); CREATININE 0.9 mg/dL (0.6-1.3); POTASSIUM 3.2 mmol/L (3.5-5.1); TOTAL PROTEIN, SERUM 8.5 g/dL (6.4-8.2)
[2022-05-25 04:23] LABS: BACTERIA,URINE Many /HPF (None Seen)
[2022-05-25] MEDS ORDERED: IV NS 0.9% 250 ML IV ONE (04:56)
[2022-05-25] MEDS ORDERED: IOHEXOL-300 100 ML VIAL IV ONE (04:56)
--- NOTE | 2022-05-25 06:49 | NUR ---
Patient discharged to home in stable condition. Written and verbal after care instructions given. Patient verbalizes understanding of instruction.
--- NOTE | 2022-05-25 06:49 | NUR ---
TOLD ADMITTING TO CALL FOR CAB.
[2022-05-25 06:50] VITALS: BP 139/78
== END 2022-05-25 06:50 | disposition home or self-care (01) ==
LOC: ER 02:31
DX: R10.84 Generalized abdominal pain (principal); I10 Essential (primary) hypertension; M06.9 Rheumatoid arthritis, unspecified; Z88.0 Allergy status to penicillin; Z88.8 Allergy status to other drugs, medicaments and biological substances; Z79.899 Other long term (current) drug therapy
CPT/HCPCS: 99285; 74176; 96372; 80048; 87086; 83690; 80076; 84703; 81001; 36415; 84702; J7050; J2270; Q9967; J1885; J2405; J7030

== ENCOUNTER 2022-10-11 22:35 | Emergency (ER) | payer MEDICAID ==
[~2022-10-11] VITALS: Ht 177.8 cm; Wt 117.9 kg
[2022-10-11 23:20] VITALS: BP 138/78
[2022-10-11] MEDS ORDERED: IBUPROFEN 400 MG TABLET ONE (23:29)
[2022-10-11] MEDS ORDERED: IBUPROFEN 400 MG TABLET PO ONE (23:30)
[2022-10-12] MEDS ORDERED: KETO10TA2 PO (00:31)
[2022-10-12] MEDS ORDERED: KETOROLAC TROMETHAMINE INJ 30 MG/ML VIAL ONE (00:35)
--- NOTE | 2022-10-12 00:37 | NUR ---
Patient discharged to home in stable condition. Written and verbal after care instructions given. Patient verbalizes understanding of instruction. Pt ambulatory with a steady gait
[2022-10-12] MEDS ORDERED: KETOROLAC TROMETHAMINE INJ 30 MG/ML VIAL IM ONE (01:00)
== END 2022-10-12 00:39 | disposition home or self-care (01) ==
LOC: ER 22:39
DX: S93.401A Sprain of unspecified ligament of right ankle, initial encounter (principal); S90.31XA Contusion of right foot, initial encounter; F17.200 Nicotine dependence, unspecified, uncomplicated; Z88.0 Allergy status to penicillin; Z88.8 Allergy status to other drugs, medicaments and biological substances; Z79.899 Other long term (current) drug therapy; X58.XXXA Exposure to other specified factors, initial encounter; Y93.89 Activity, other specified; Y92.89 Other specified places as the place of occurrence of the external cause; Y99.8 Other external cause status
CPT/HCPCS: 99284; 73610; 73630; 96372; J1885

== ENCOUNTER 2022-10-17 21:12 | Emergency (ER) | payer MEDICAID ==
[~2022-10-17] VITALS: Ht 170.2 cm; Wt 117.9 kg
[~2022-10-17 21:12] MED LIST changes: +KETO10TA2 PO
--- NOTE | 2022-10-17 21:20 | NUR ---
[id number] FROM HOME C/O SIP AND FALL AND PAIN TO LEFT SIDE OF HEAD AND LEFT LEG, -KO,-N/V. PT SUSTAINED CONTUSION ON LEFT FOREHEAD. AAOX4. ABLE TO MAKE NEEDS KNOWN. PAIN SCALE OF 5/10. PLACED COMFORTABLY IN BED. VITALS CHECKED.
--- NOTE | 2022-10-17 21:35 | NUR ---
SEEN BY MD AT BEDSIDE
[2022-10-17] MEDS ORDERED: KETOROLAC TROMETHAMINE INJ 30 MG/ML VIAL ONE (21:43)
[2022-10-17] MEDS ORDERED: CYCLOBENZAPRINE 10 MG TABLET ONE (21:43)
--- NOTE | 2022-10-17 21:45 | NUR ---
BROUGHT TO CT DEPT
--- NOTE | 2022-10-17 21:59 | NUR ---
CAME BACK FROM CT DEPT
[2022-10-17] MEDS ORDERED: KETOROLAC TROMETHAMINE INJ 30 MG/ML VIAL IM ONE (22:00)
[2022-10-17] MEDS ORDERED: CYCLOBENZAPRINE 10 MG TABLET PO ONE (22:00)
[2022-10-17] MEDS ORDERED: KETO10TA2 PO (22:41)
[2022-10-17] MEDS ORDERED: CYCL5TAB PO (22:41)
--- NOTE | 2022-10-17 22:52 | NUR ---
CALLED MOTHER KRYSTLE. SHE WILL COME TO [employer]
--- NOTE | 2022-10-18 00:42 | NUR ---
Patient discharged to home in stable condition. Written and verbal after care instructions given. Patient verbalizes understanding of instruction.
[2022-10-18 00:44] VITALS: BP 156/87
== END 2022-10-18 00:45 | disposition home or self-care (01) ==
LOC: ER 21:25
DX: S80.11XA Contusion of right lower leg, initial encounter (principal); I10 Essential (primary) hypertension; F17.200 Nicotine dependence, unspecified, uncomplicated; Z79.899 Other long term (current) drug therapy; Z76.5 Malingerer [conscious simulation]; Z88.0 Allergy status to penicillin; Z88.1 Allergy status to other antibiotic agents; Z88.5 Allergy status to narcotic agent; W01.0XXA Fall on same level from slipping, tripping and stumbling without subsequent striking against object, initial encounter; Y93.89 Activity, other specified; Y92.89 Other specified places as the place of occurrence of the external cause; Y99.8 Other external cause status
CPT/HCPCS: 99285; 70450; 96372; 73610; 73502; 73564; J1885

== ENCOUNTER 2024-03-15 16:50 | Emergency (ER) | payer MEDICAID ==
[~2024-03-15] VITALS: Ht 177.8 cm; Wt 113.4 kg
[~2024-03-15 16:50] MED LIST changes: +CYCL5TAB PO
--- NOTE | 2024-03-15 16:59 | NUR ---
R KNEE PAIN NON TRAUMATIC X 1 WEEK WORSE TODAY. WANTS TORADOL SHOT
[2024-03-15] MEDS ORDERED: KETOROLAC TROMETHAMINE 15 MG/ML VIAL ONE (17:14)
[2024-03-15] MEDS: KETOROLAC TROMETHAMINE 15 MG/ML VIAL IM ONE (17:19)
--- NOTE | 2024-03-15 17:31 | NUR ---
MEDICATED ORDERED. see Emar
[2024-03-15] MEDS ORDERED: MUPIROCIN OINT 2% 22 GM TUBE ONE (17:56)
[2024-03-15] MEDS: MUPIROCIN OINT 2% 22 GM TUBE TP ONE (18:04)
[2024-03-15] MEDS ORDERED: KETO10TA2 PO (18:12)
[2024-03-15] MEDS ORDERED: MUPI15CR TP (18:12)
[2024-03-15] MEDS ORDERED: CLIN300C12 PO (18:12)
[2024-03-15] MEDS ORDERED: ACET-2605 PO (18:12)
--- NOTE | 2024-03-15 18:24 | NUR ---
Patient discharged to home in stable condition. Written and verbal after care instructions given. Patient verbalizes understanding of instruction.
[2024-03-15 18:25] VITALS: BP 165/112; TEMP 209.3; O2SAT 96
== END 2024-03-15 18:26 | disposition home or self-care (01) ==
LOC: ER 16:53
DX: M06.9 Rheumatoid arthritis, unspecified (principal); L03.115 Cellulitis of right lower limb; I10 Essential (primary) hypertension; F17.200 Nicotine dependence, unspecified, uncomplicated; Z79.899 Other long term (current) drug therapy; Z88.5 Allergy status to narcotic agent; Z88.0 Allergy status to penicillin; Z88.1 Allergy status to other antibiotic agents
CPT/HCPCS: 99283; 96372; J1885

== ENCOUNTER 2025-02-23 16:19 | Emergency (ER) | payer MEDICAID ==
[~2025-02-23] VITALS: Ht 175.3 cm; Wt 108.9 kg
[~2025-02-23 16:19] MED LIST changes: +ACET-2605 PO; +CLIN300C12 PO; +MUPI15CR TP
[2025-02-23] MEDS ORDERED: PROC10TA29 PO (17:52)
[2025-02-23] MEDS ORDERED: LIDOCAINE 5% (PATCH) 1 EA PATCH TP ONE (18:04)
[2025-02-23] MEDS ORDERED: PROCHLORPERAZINE EDISYLATE 10 MG/2 ML VIAL ONE (18:06)
[2025-02-23] MEDS ORDERED: KETOROLAC TROMETHAMINE 15 MG/ML VIAL ONE (18:06)
[2025-02-23] MEDS: LIDOCAINE 5% (PATCH) 1 EA PATCH TP SCH (18:16)
[2025-02-23] MEDS: PROCHLORPERAZINE EDISYLATE 10 MG/2 ML VIAL IM ONE (18:17)
[2025-02-23] MEDS: KETOROLAC TROMETHAMINE 15 MG/ML VIAL IM ONE (18:18)
[2025-02-23 19:05] VITALS: BP 148/105; TEMP 98.5; O2SAT 98
== END 2025-02-23 19:05 | disposition home or self-care (01) ==
LOC: ER 16:28
DX: M54.42 Lumbago with sciatica, left side (principal); M54.41 Lumbago with sciatica, right side; M06.9 Rheumatoid arthritis, unspecified; I10 Essential (primary) hypertension; F17.200 Nicotine dependence, unspecified, uncomplicated; Z79.899 Other long term (current) drug therapy; Z88.0 Allergy status to penicillin; Z88.1 Allergy status to other antibiotic agents; Z88.5 Allergy status to narcotic agent
CPT/HCPCS: 99284; 96372 ×2; J1885; J0780